=== PATIENT | male | born 1940 | race Caucasian/White ===

== ENCOUNTER 2023-03-14 16:00 | Inpatient (IN) | payer MEDICARE, SELFPAY ==
[2023-03-14 16:45] VITALS: BMI 26.5
[2023-03-14 16:46] VITALS: BP 132/79; PULSE 84; RESP 16; TEMP 36.4; O2SAT 93
[2023-03-14 18:00] VITALS: BP 108/56; PULSE 87; RESP 16; TEMP 36; O2SAT 95
--- NOTE | 2023-03-14 18:33 | HO.PM.IMCN ---
History of Present Illness Data of Consult Service Date: 03/14/23 Primary Care Provider: Unknown Physician HPI Reason for consult: Admission H&P Pt is an 82-year-old male with a PMH significant for?HTN, HLD, GERD, hx of subdural hematoma, cognitive decline, and depression who is admitted to [facility] for increasing depression with SI with plan to stop taking home meds. Patient apparently recently discontinued his home medications in conjunction with his with the intention of committing suicide. Medical consult for admission H&P. ?Pt is alert and oriented to person and year, but not to place or situation. He is incapable of providing a full and accurate HPI. When asked, pt denies any acute medical complaints and states he feels good. Review of Systems Review of Systems: Unable to obtain d/t pt's mentation [facility] Social History Household Members: Spouse Housing: Apartment Do you presently have visiting nurse or other home services: Yes Patient Tobacco Use Status: Former Tobacco user Quit Date: 2017 Tobacco use type: Cigarette Smoked in Last 30 Days: No Patient Interested in Nicotine Replacement: No Second Hand Smoke Exposure: No Use of substances other than those prescribed or required for medical reasons: No Currently Displaying Signs/Symptoms of Drug Intoxication Withdrawal: No Any prior treatment program specific to substance use: No Have you been hit, kicked, punched, or otherwise hurt by someone within the past year? If so, by whom?: No Do you feel safe in your current relationship?: Yes Are you made to feel afraid or neglected: No Advance Directives: No Advance Directives Information Provided: No Do you have thoughts of harming others: None Do you have a plan to hurt others: No Plan Recently lost weight without trying: No Nutrition Risks: No Nutritional Risk Poor oral hygiene: No Meds Allergies Allergy/AdvReac Type Severity Reaction Status Date / Time Latex, Natural Rubber AdvReac Rash Verified 03/14/23 16:44 Active Medications: Current Medications Acetaminophen (Acetaminophen 325 Mg Tablet) 650 mg PO Q6H PRN PRN Reason: Headache/Pain Mild Scale (1-3) Acetaminophen (Acetaminophen 325 Mg Tablet) 1,000 mg PO BEDTIME PRN PRN Reason: Moderate Pain (Scale Score 5-6) Al Hydroxide/Mg Hydroxide (Magnesium Hydrox/Alum Hydrox 30 Ml Oral.Susp) 30 ml PO Q6H PRN PRN Reason: Heartburn/Nausea Atorvastatin Calcium (Atorvastatin Calcium 40 Mg Tablet) 40 mg PO 1XD RICK Hydroxyzine HCl (Hydroxyzine Hcl 25 Mg Tablet) 25 mg PO Q6H PRN PRN Reason: Anxiety Lisinopril (Lisinopril 5 Mg Tablet) 5 mg PO DAILY RICK; Protocol Magnesium Hydroxide (Milk Of Magnesia 30 Ml Oral.Susp) 30 ml PO DAILY PRN PRN Reason: Constipation Non-Formulary Medication (Bupropion Hcl) 100 mg PO BID RICK Non-Formulary Medication (Lansoprazole) 15 mg PO DAILY RICK Sertraline HCl (Sertraline Hcl 50 Mg Tablet) 250 mg PO DAILY RICK Trazodone HCl (Trazodone Hcl 50 Mg Tablet) 50 mg PO BEDTIME MRX1 PRN PRN Reason: Insomnia Home Medications Medication Instructions Recorded Confirmed Last Taken Type acetaminophen 325 mg capsule 1,000 mg PO BEDTIME PRN Moderate 03/14/23 03/14/23 03/13/23 21:00 History (Tylenol) Pain (Scale Score 5-6) atorvastatin 40 mg tablet 40 mg PO 1XD 03/14/23 03/14/23 03/13/23 21:00 History bupropion HCl 100 mg tablet,12 hr 100 mg PO BID 03/14/23 03/14/23 03/14/23 08:45 History sustained-release lansoprazole 15 mg capsule,delayed 15 mg PO DAILY 03/14/23 03/14/23 03/14/23 08:45 History release lisinopril 5 mg tablet 5 mg PO DAILY 03/14/23 03/14/23 03/14/23 08:45 History sertraline 50 mg tablet 250 mg PO DAILY 03/14/23 03/14/23 03/14/23 08:45 History vibegron 75 mg tablet 75 mg PO DAILY 03/14/23 03/14/23 Unknown History Physical Exam Vital Signs and Narrative: Vital Signs: Last Vital Signs Temp 97.6 F 03/14/23 16:46 Pulse 84 03/14/23 16:46 Resp 16 03/14/23 16:46 BP 132/79 03/14/23 16:46 Pulse Ox 93 03/14/23 16:46 O2 Del Method Room Air 03/14/23 16:46 BMI result Body Mass Index 26.5 General: AOx2, pleasantly confused, in no acute distress Resp: CTA bilaterally CVS: S1, S2, RRR GI: +BS, NT, no distention Skin: No rash Neuro: Cranial nerves II-XII grossly intact bilaterally. Motor grossly intact bilaterally Extremities: No edema Psych: Cooperative, pleasantly confused Assessment and Plan (1) Medical clearance for psychiatric admission: Status: Acute Plan Pt is an 82-year-old male with a PMH significant for?HTN, HLD, GERD, hx of subdural hematoma, cognitive decline, and depression who is admitted to [facility] for increasing depression with SI with plan to stop taking home meds. Patient apparently recently discontinued his home medications in conjunction with his with the intention of committing suicide. Medical consult for admission H&P. Mood disorder Plan as per psychiatry HTN Continue lisinopril HLD Continue statin GERD Continue PPI Overactive bladder Continue vibegron Thank you for allowing us to participate in the care of this patient. Signing off at this time. Please let us know if there are any acute complaints or questions. Time Spent With Patient Time: Total time managing care of this patient today ____ minutes.
--- NOTE | 2023-03-14 19:10 | PC.ADMIT ---
Patient 82 y.o. male arrived via stretcher from [facility] at 16:17. Alert, oriented to person, he knows he is in hospital d/t uncertain of his brain , didn't remember which hospital, confused. VS: 97.6, P 84, 132/79, O2sat 93% on RA. Pt denies pain. Hygiene care provided. Some reddened to hernan area noted. BM after supper. Pt ambulates with assist, gait unsteady. Adm Dx of Major depressive disorder, SI. Pt said he and his were thinking about ending their life by using gas masks and laughing gas. Then he said he didn't see his for six months and doesn't know where she is. Pt requested Flu vaccination.
[2023-03-14] MEDS: Atorvastatin Calcium 40 MG TABLET PO (21:26)
[2023-03-14] MEDS: hydrOXYzine HCL 25 MG TABLET PO (21:26)
[2023-03-14] MEDS: traZODone HCL 50 MG TABLET PO (21:27)
[2023-03-15 08:33] LABS: Alanine Aminotransferase 28 U/L (0-40); Albumin Level 3.9 g/dL (3.5-5.0); Alkaline Phosphatase 57 U/L (39-117); Anion Gap 14 (12-20); Aspartate Amino Transferase 24 U/L (5-37); Bilirubin Total 0.5 mg/dL (0.0-1.0); Blood Urea Nitrogen 19 mg/dL (9-16); Calcium 10.4 mg/dL (8.4-10.2); Carbon Dioxide 25 mmol/L (22-29); Chloride 109 mmol/L (96-108); Cholesterol 101 mg/dL (<200); Creatinine Clr Calc Pharmacy 65.9; Estimated Glomerular Filt Rate > 60; Glucose Fasting 95 mg/dL (60-99); HDL Cholesterol 36 mg/dL (>40); LDL Cholesterol Calculated 44 mg/dL (<100); Potassium 4.1 mmol/L (3.3-5.1); Sodium 144 mmol/L (135-145); Total Protein 6.7 g/dL (6.5-8.0); Triglycerides 105 mg/dL (<150)
[2023-03-15 09:13] VITALS: BP 130/74; PULSE 85; RESP 17; TEMP 36.5; O2SAT 93
[2023-03-15] MEDS: Omeprazole 20 MG CAPSULE.DR PO (09:15)
[2023-03-15] MEDS: Sertraline HCL 50 MG TABLET 250 MG PO (09:15)
[2023-03-15] MEDS: lisinopriL 5 MG TABLET PO (09:16)
[2023-03-15] MEDS: buPROPion HCl XL 150 MG TAB.ER.24H PO (09:16)
--- NOTE | 2023-03-15 12:13 | HO.PSYADMNOT ---
HPI Date of Service: 03/15/23 Chief Complaint: psychosis Sources of Information: patient interviewed, chart reviewed and crisis/core team assessment reviewed HPI Subjective Notes: Conditional Voluntary Narrative: The patient is an 82-year-old male, , with no biological children, retired, living with his with no prior psychiatric history. According to the crisis assessment, the patient used to live with his who was admitted into geriatric psychiatric unit. He was a very poor historian but apparently he stopped his medications in a suicidal attempt. Also, his cognition has worsened and he was unable to take care by himself. He was rushed to the emergency room of [facility], admitted and referred to this facility for psychiatric stabilization. Apparently, the patient had been a very poor historian unable to provide any more details but he was able to admit depressive symptoms elicited by depressed mood, anhedonia, lack of energy and suicidal thoughts. On admission, the patient looked tired and confused. He stated that he was assessed before and he had a cognitive problem, he stated that he was feeling depressed with depressed mood, anhedonia, lack of energy, feelings of hopelessness and passive suicidal thoughts. He was unable to remember that he was suicidal certain point. He adamantly denies hallucinations delusions or paranoia. He denies prior history of mood lability or psychosis. The patient was already started on Wellbutrin but he was unable to provide a list of medications. We decided to gather collateral information since the patient is a very poor historian at this moment the patient states that he feels safe in the unit he is willing to continue treatment. Past Psychiatric History: The patient denies prior psychiatric history but apparently he was diagnosed of dementia before. Medical Evaluation Reviewed: Yes [facility] Family History: Denies Social History: , with no biological children, lives with his until she was admitted into a psychiatric unit. Retired unknown social support Substance History: Denies Trauma History: Denies Diagnostics Vital Signs (24Hr): Vital Signs - 24 hr 03/14/23 16:46 03/14/23 18:00 03/15/23 09:13 Temperature 97.6 F 96.8 F 97.7 F Pulse Rate 84 87 85 Respiratory Rate 16 16 17 Blood Pressure 132/79 108/56 L 130/74 Pulse Oximetry 93 95 93 Oxygen Delivery Method Room Air Room Air Room Air BMI result Body Mass Index 26.5 Labs 03/15/23 07:56 Labs: Laboratory Results - last 48 hr 03/15/23 07:56 Sodium 144 Potassium 4.1 Chloride 109 H Carbon Dioxide 25 Anion Gap 14 BUN 19 H Creatinine 0.98 Estim Creat Clear Calc 65.9 Estimated GFR > 60 Fasting Glucose 95 Calcium 10.4 H Total Bilirubin 0.5 AST 24 ALT 28 Alkaline Phosphatase 57 Total Protein 6.7 Albumin 3.9 Triglycerides 105 Cholesterol 101 LDL Cholesterol, Calc 44 HDL Cholesterol 36 L Meds/Allergies Meds Home Medications Medication Instructions Recorded Confirmed Type acetaminophen 325 mg capsule 1,000 mg PO BEDTIME PRN Moderate 03/14/23 03/14/23 History (Tylenol) Pain (Scale Score 5-6) atorvastatin 40 mg tablet 40 mg PO 1XD 03/14/23 03/14/23 History bupropion HCl 100 mg tablet,12 hr 100 mg PO BID 03/14/23 03/14/23 History sustained-release lansoprazole 15 mg capsule,delayed 15 mg PO DAILY 03/14/23 03/14/23 History release lisinopril 5 mg tablet 5 mg PO DAILY 03/14/23 03/14/23 History sertraline 50 mg tablet 250 mg PO DAILY 03/14/23 03/14/23 History vibegron 75 mg tablet 75 mg PO DAILY 03/14/23 03/14/23 History Allergies Allergies Allergy/AdvReac Type Severity Reaction Status Date / Time Latex, Natural Rubber AdvReac Rash Verified 03/14/23 16:44 Mental Status Exam Mental Status Exam Patient Appearance: Disheveled and Unkempt Patient Orientation: Person Level of Consciousness: Awake Patient Behavior: Guarded and Passive Mood Description: Withdrawn and Constricted Affect Description: Blunted Patient Cognition Impaired: Yes Ability to Follow Directions: Fair Speech Pattern: Clear Hallucinations: None Delusions: Not Present Thought Process: Distracted and Slowed Thinking Thought Content: positive for [place] and positive for Poverty of Content Judgement: Poor Assessment & Plan Assessment & Plan (1) Major depressive disorder: Status: Acute Code(s): F32.9 - Major depressive disorder, single episode, unspecified (2) Neurodegenerative cognitive impairment: Status: Acute Code(s): G31.9 - Degenerative disease of nervous system, unspecified Plan The patient is an elderly male with no prior psychiatric history, admitted for suicidal thoughts and depression since his was admitted into a psychiatric unit. On interview, on admission, he was very confused and a very poor historian. According to crisis, the patient had a prior history of depression and started reading Wellbutrin. Plan 1. Gather collateral information the prep H and is a very poor historian and he is willing to start treatment. 2. Continue with Wellbutrin as prescribed. 3. Continue with medical workout. 4. Reassessment results. Patient educated on: diagnosis and therapeutic strategies Reason for continued inpatient stay Substantial Risk for: inability to function, rapid decompensation and med/psych decompensation Statement Statement: I have reviewed the history and physical and performed a pertinent examination on my patient. No changes have occurred unless specified. If the History and Physical was not performed prior to admission, the Hospitalist's service will be consulted for completing the admission physical. Time Spent With Patient Time: Total time managing care of this patient today _45___ minutes.
[2023-03-15 18:00] VITALS: BP 142/62; PULSE 73; RESP 18; TEMP 35.9; O2SAT 95
[2023-03-15] MEDS: Atorvastatin Calcium 40 MG TABLET PO (21:13)
[2023-03-16 08:15] VITALS: BP 113/73; PULSE 86; RESP 18; TEMP 36.3; O2SAT 95
[2023-03-16] MEDS: buPROPion HCl XL 150 MG TAB.ER.24H PO (08:52)
[2023-03-16] MEDS: lisinopriL 5 MG TABLET PO (08:52)
[2023-03-16] MEDS: Omeprazole 20 MG CAPSULE.DR PO (09:01)
[2023-03-16] MEDS: Sertraline HCL 50 MG TABLET 250 MG PO (09:01)
--- NOTE | 2023-03-16 17:58 | HO.PSYCHPN ---
Subjective Subjective Date of Service: 03/16/23 Reason For Visit: psychosis Interim History: Met with patient; discussed with team; reviewed notes Patient lying in bed and says I am doing just fine. Hammer Fitter inquired further about his mood but patient replied I just can not answer that question... Denies any SI. Mental Status Exam Mental Status Exam Patient Appearance: Unkempt Patient Orientation: Person Level of Consciousness: Awake Patient Behavior: Guarded and Passive Mood Description: Withdrawn and Constricted Affect Description: Blunted Patient Cognition Impaired: Yes Ability to Follow Directions: Fair Speech Pattern: Clear Hallucinations: None Delusions: Not Present Thought Process: Distracted and Slowed Thinking Thought Content: positive for [place] and positive for Poverty of Content Abnormal Motor Activity Signs and Symptoms: Psychomotor Retardation Judgement: Poor Diagnostics Vital Signs (24Hr): Vital Signs - 24 hr 03/15/23 18:00 03/16/23 08:15 Temperature 96.7 F L 97.4 F Pulse Rate 73 86 Respiratory Rate 18 18 Blood Pressure 142/62 H 113/73 Pulse Oximetry 95 95 Oxygen Delivery Method Room Air Room Air BMI result Body Mass Index 26.5 Labs 03/15/23 07:56 Labs: Laboratory Results - last 48 hr 03/15/23 07:56 Sodium 144 Potassium 4.1 Chloride 109 H Carbon Dioxide 25 Anion Gap 14 BUN 19 H Creatinine 0.98 Estim Creat Clear Calc 65.9 Estimated GFR > 60 Fasting Glucose 95 Calcium 10.4 H Total Bilirubin 0.5 AST 24 ALT 28 Alkaline Phosphatase 57 Total Protein 6.7 Albumin 3.9 Triglycerides 105 Cholesterol 101 LDL Cholesterol, Calc 44 HDL Cholesterol 36 L Medications Medications Current Medications Acetaminophen (Acetaminophen 325 Mg Tablet) 650 mg PO Q6H PRN PRN Reason: Headache/Pain Mild Scale (1-3) Acetaminophen (Acetaminophen 325 Mg Tablet) 975 mg PO BEDTIME PRN PRN Reason: Moderate Pain (Scale Score 5-6) Al Hydroxide/Mg Hydroxide (Magnesium Hydrox/Alum Hydrox 30 Ml Oral.Susp) 30 ml PO Q6H PRN PRN Reason: Heartburn/Nausea Atorvastatin Calcium (Atorvastatin Calcium 40 Mg Tablet) 40 mg PO BEDTIME [facility] Last Admin: 03/15/23 21:13 Dose: 40 mg Bupropion HCl (Bupropion Hcl Xl 150 Mg Tab.Er.24h) 150 mg PO DAILY [facility] Last Admin: 03/16/23 08:52 Dose: 150 mg Hydroxyzine HCl (Hydroxyzine Hcl 25 Mg Tablet) 25 mg PO Q6H PRN PRN Reason: Anxiety Last Admin: 03/14/23 21:26 Dose: 25 mg Lisinopril (Lisinopril 5 Mg Tablet) 5 mg PO DAILY [facility]; Protocol Last Admin: 03/16/23 08:52 Dose: 5 mg Magnesium Hydroxide (Milk Of Magnesia 30 Ml Oral.Susp) 30 ml PO DAILY PRN PRN Reason: Constipation Omeprazole (Omeprazole 20 Mg Capsule.Dr) 20 mg PO DAILY [facility] Last Admin: 03/16/23 09:01 Dose: 20 mg Sertraline HCl (Sertraline Hcl 50 Mg Tablet) 250 mg PO DAILY [facility] Last Admin: 03/16/23 09:01 Dose: 250 mg Trazodone HCl (Trazodone Hcl 50 Mg Tablet) 50 mg PO BEDTIME MRX1 PRN PRN Reason: Insomnia Last Admin: 03/14/23 21:27 Dose: 50 mg Allergies Allergies Allergy/AdvReac Type Severity Reaction Status Date / Time Latex, Natural Rubber AdvReac Rash Verified 03/14/23 16:44 Assessment & Plan Assessment & Plan (1) Major depressive disorder: Status: Acute Code(s): F32.9 - Major depressive disorder, single episode, unspecified (2) Neurodegenerative cognitive impairment: Status: Acute Code(s): G31.9 - Degenerative disease of nervous system, unspecified Plan The patient is an elderly male with no prior psychiatric history, admitted for suicidal thoughts and depression since his was admitted into a psychiatric unit. On interview, on admission, he was very confused and a very poor historian. According to crisis, the patient had a prior history of depression and started reading Wellbutrin. 03/16 continue current treatment plan Plan 1. Gather collateral information the prep H and is a very poor historian and he is willing to start treatment. 2. Continue with Wellbutrin as prescribed. 3. Continue with medical workout. 4. Reassessment results. Patient educated on: diagnosis Informed Consent: understands and further education needed Reason for continued inpatient stay Substantial Risk for: inability to function Time Spent With Patient Time: Total time managing care of this patient today ____ minutes.
[2023-03-16 18:00] VITALS: BP 107/57; PULSE 88; RESP 17; TEMP 37.6; O2SAT 93
[2023-03-16] MEDS: traZODone HCL 50 MG TABLET PO (21:10)
[2023-03-16] MEDS: Atorvastatin Calcium 40 MG TABLET PO (21:10)
[2023-03-17] MEDS: Acetaminophen 325 MG TABLET 650 MG PO (06:02)
[2023-03-17 08:10] VITALS: BP 144/83; PULSE 78; RESP 18; TEMP 36.1; O2SAT 95
[2023-03-17] MEDS: lisinopriL 5 MG TABLET PO (09:31)
[2023-03-17] MEDS: Sertraline HCL 50 MG TABLET 250 MG PO (09:31)
[2023-03-17] MEDS: buPROPion HCl XL 150 MG TAB.ER.24H PO (09:32)
[2023-03-17] MEDS: Omeprazole 20 MG CAPSULE.DR PO (10:59)
--- NOTE | 2023-03-17 17:29 | P.PNPSI_ITS ---
Subjective Subjective Date of Service: 03/17/23 Reason For Visit: psychosis Interim History: Met with patient; discussed with team Same presentation, lying in bed reading a book. Mechanical Engineering Technologist discussed behavioral activation as it is helpful for both depression and to prevent blood clots or bedsores. Patient says he understands and will push himself to walk the halls a few times a day. Mental Status Exam Mental Status Exam Patient Appearance: Unkempt Patient Orientation: Person Level of Consciousness: Awake Patient Behavior: Guarded and Passive Mood Description: Withdrawn and Constricted Affect Description: Blunted Patient Cognition Impaired: Yes Ability to Follow Directions: Fair Speech Pattern: Clear Hallucinations: None Delusions: Not Present Thought Process: Distracted and Slowed Thinking Thought Content: positive for [place] and positive for Poverty of Content Abnormal Motor Activity Signs and Symptoms: Psychomotor Retardation Judgement: Poor Diagnostics Vital Signs (24Hr): Vital Signs - 24 hr 03/16/23 18:00 03/17/23 08:10 Temperature 99.7 F 96.9 F Pulse Rate 88 78 Respiratory Rate 17 18 Blood Pressure 107/57 L 144/83 H Pulse Oximetry 93 95 Oxygen Delivery Method Room Air Room Air BMI result Body Mass Index 26.5 Labs 03/15/23 07:56 Medications Medications Current Medications Acetaminophen (Acetaminophen 325 Mg Tablet) 650 mg PO Q6H PRN PRN Reason: Headache/Pain Mild Scale (1-3) Last Admin: 03/17/23 06:02 Dose: 650 mg Acetaminophen (Acetaminophen 325 Mg Tablet) 975 mg PO BEDTIME PRN PRN Reason: Moderate Pain (Scale Score 5-6) Al Hydroxide/Mg Hydroxide (Magnesium Hydrox/Alum Hydrox 30 Ml Oral.Susp) 30 ml PO Q6H PRN PRN Reason: Heartburn/Nausea Atorvastatin Calcium (Atorvastatin Calcium 40 Mg Tablet) 40 mg PO BEDTIME RICK Last Admin: 03/16/23 21:10 Dose: 40 mg Bupropion HCl (Bupropion Hcl Xl 150 Mg Tab.Er.24h) 150 mg PO DAILY RICK Last Admin: 03/17/23 09:32 Dose: 150 mg Hydroxyzine HCl (Hydroxyzine Hcl 25 Mg Tablet) 25 mg PO Q6H PRN PRN Reason: Anxiety Last Admin: 03/14/23 21:26 Dose: 25 mg Lisinopril (Lisinopril 5 Mg Tablet) 5 mg PO DAILY RICK; Protocol Last Admin: 03/17/23 09:31 Dose: 5 mg Magnesium Hydroxide (Milk Of Magnesia 30 Ml Oral.Susp) 30 ml PO DAILY PRN PRN Reason: Constipation Omeprazole (Omeprazole 20 Mg Capsule.Dr) 20 mg PO DAILY RICK Last Admin: 03/17/23 10:59 Dose: 20 mg Sertraline HCl (Sertraline Hcl 50 Mg Tablet) 250 mg PO DAILY RICK Last Admin: 03/17/23 09:31 Dose: 250 mg Trazodone HCl (Trazodone Hcl 50 Mg Tablet) 50 mg PO BEDTIME MRX1 PRN PRN Reason: Insomnia Last Admin: 03/16/23 21:10 Dose: 50 mg Allergies Allergies Allergy/AdvReac Type Severity Reaction Status Date / Time Latex, Natural Rubber AdvReac Rash Verified 03/14/23 16:44 Assessment & Plan Assessment & Plan (1) Major depressive disorder: Status: Acute Code(s): F32.9 - Major depressive disorder, single episode, unspecified (2) Neurodegenerative cognitive impairment: Status: Acute Code(s): G31.9 - Degenerative disease of nervous system, unspecified Plan The patient is an elderly male with no prior psychiatric history, admitted for suicidal thoughts and depression since his was admitted into a psychiatric unit. On interview, on admission, he was very confused and a very poor historian. According to crisis, the patient had a prior history of depression and started reading Wellbutrin. 03/16 continue current treatment plan 03/17 continue current treatment plan Plan 1. Gather collateral information the prep H and is a very poor historian and he is willing to start treatment. 2. Continue with Wellbutrin as prescribed. 3. Continue with medical workout. 4. Reassessment results. Patient educated on: diagnosis and therapeutic strategies Informed Consent: understands and further education needed Reason for continued inpatient stay Substantial Risk for: inability to function Time Spent With Patient Time: Total time managing care of this patient today ____ minutes.
[2023-03-17 19:35] VITALS: BP 135/76; PULSE 83; RESP 18; TEMP 36.2; O2SAT 95
[2023-03-17] MEDS: Atorvastatin Calcium 40 MG TABLET PO (20:08)
[2023-03-18 06:00] VITALS: BP 125/82; PULSE 91; RESP 18; TEMP 35.9; O2SAT 95
[2023-03-18] MEDS: buPROPion HCl XL 150 MG TAB.ER.24H PO (08:23)
[2023-03-18] MEDS: Sertraline HCL 50 MG TABLET 250 MG PO (08:23)
[2023-03-18] MEDS: lisinopriL 5 MG TABLET PO (08:23)
[2023-03-18] MEDS: Omeprazole 20 MG CAPSULE.DR PO (08:24)
--- NOTE | 2023-03-18 11:53 | P.PNPSI_ITS ---
Subjective Subjective Date of Service: 03/18/23 Reason For Visit: psychosis Subjective Notes: Conditional Voluntary Interim History: the nursing staff reported the patient had been flat, cooperative and pleasant. Alert only oriented to self. He slept well all last night. On interview the patient remains confused, easily redirectable. We discussed the possibility of starting medications for dementia and he agreed on the plan. Mental Status Exam Mental Status Exam Patient Appearance: Appropriate Patient Orientation: Person and Situation Level of Consciousness: Awake and Appropriate Patient Behavior: Guarded and Passive Mood Description: Withdrawn Affect Description: Constricted Patient Cognition Impaired: Yes Ability to Follow Directions: Good Speech Pattern: Clear Hallucinations: None Delusions: Not Present Thought Process: Distracted and Slowed Thinking Thought Content: positive for [place], positive for [place] and positive for Poverty of Content Judgement: Fair Diagnostics Vital Signs (24Hr): Vital Signs - 24 hr 03/17/23 19:35 03/18/23 06:00 Temperature 97.2 F 96.6 F L Pulse Rate 83 91 Respiratory Rate 18 18 Blood Pressure 135/76 125/82 Pulse Oximetry 95 95 Oxygen Delivery Method Room Air BMI result Body Mass Index 26.5 Labs 03/15/23 07:56 Medications Medications Current Medications Acetaminophen (Acetaminophen 325 Mg Tablet) 650 mg PO Q6H PRN PRN Reason: Headache/Pain Mild Scale (1-3) Last Admin: 03/17/23 06:02 Dose: 650 mg Acetaminophen (Acetaminophen 325 Mg Tablet) 975 mg PO BEDTIME PRN PRN Reason: Moderate Pain (Scale Score 5-6) Al Hydroxide/Mg Hydroxide (Magnesium Hydrox/Alum Hydrox 30 Ml Oral.Susp) 30 ml PO Q6H PRN PRN Reason: Heartburn/Nausea Atorvastatin Calcium (Atorvastatin Calcium 40 Mg Tablet) 40 mg PO BEDTIME RICK Last Admin: 03/17/23 20:08 Dose: 40 mg Bupropion HCl (Bupropion Hcl Xl 150 Mg Tab.Er.24h) 150 mg PO DAILY RICK Last Admin: 03/18/23 08:23 Dose: 150 mg Hydroxyzine HCl (Hydroxyzine Hcl 25 Mg Tablet) 25 mg PO Q6H PRN PRN Reason: Anxiety Last Admin: 03/14/23 21:26 Dose: 25 mg Lisinopril (Lisinopril 5 Mg Tablet) 5 mg PO DAILY RICK; Protocol Last Admin: 03/18/23 08:23 Dose: 5 mg Magnesium Hydroxide (Milk Of Magnesia 30 Ml Oral.Susp) 30 ml PO DAILY PRN PRN Reason: Constipation Omeprazole (Omeprazole 20 Mg Capsule.Dr) 20 mg PO DAILY RICK Last Admin: 03/18/23 08:24 Dose: 20 mg Sertraline HCl (Sertraline Hcl 50 Mg Tablet) 250 mg PO DAILY RICK Last Admin: 03/18/23 08:23 Dose: 250 mg Trazodone HCl (Trazodone Hcl 50 Mg Tablet) 50 mg PO BEDTIME MRX1 PRN PRN Reason: Insomnia Last Admin: 03/16/23 21:10 Dose: 50 mg Allergies Allergies Allergy/AdvReac Type Severity Reaction Status Date / Time Latex, Natural Rubber AdvReac Rash Verified 03/14/23 16:44 Assessment & Plan Assessment & Plan (1) Major depressive disorder: Status: Acute Code(s): F32.9 - Major depressive disorder, single episode, unspecified (2) Neurodegenerative cognitive impairment: Status: Acute Code(s): G31.9 - Degenerative disease of nervous system, unspecified Plan The patient is an elderly male with no prior psychiatric history, admitted for suicidal thoughts and depression since his was admitted into a psychiatric unit. On interview, on admission, he was very confused and a very poor historian. According to crisis, the patient had a prior history of depression and started reading Wellbutrin. Plan 1. Gather collateral information the prep H and is a very poor historian and he is willing to start treatment. 2. Continue with Wellbutrin as prescribed. 3. Continue with medical workout. 4. Reassessment results. Reason for continued inpatient stay Substantial Risk for: inability to function, rapid decompensation and med/psych decompensation Time Spent With Patient Time: Total time managing care of this patient today _20___ minutes.
[2023-03-18 18:00] VITALS: BP 126/109; PULSE 100; RESP 18; TEMP 37; O2SAT 96
[2023-03-18] MEDS: Atorvastatin Calcium 40 MG TABLET PO (20:12)
[2023-03-18] MEDS: Donepezil HCl 5 MG TABLET PO (20:12)
[2023-03-19 06:00] VITALS: BP 132/80; PULSE 96; RESP 18; TEMP 36.7; O2SAT 96
[2023-03-19] MEDS: Sertraline HCL 50 MG TABLET 250 MG PO (09:13)
[2023-03-19] MEDS: buPROPion HCl XL 150 MG TAB.ER.24H PO (09:14)
[2023-03-19] MEDS: Omeprazole 20 MG CAPSULE.DR PO (09:14)
[2023-03-19] MEDS: lisinopriL 5 MG TABLET PO (09:15)
--- NOTE | 2023-03-19 15:45 | HO.PSYCHPN ---
Subjective Subjective Date of Service: 03/19/23 Reason For Visit: psychosis Subjective Notes: Conditional Voluntary Interim History: The nursing staff reported the patient is alert oriented to self, he had been pleasantly confused. Denies suicidal ideation. The occupational therapist reported that he has court and over 30 on the [place] and 4.2 in the Nnamdi test. The psychosocial rehabilitation counselor reported that he spoke with his brother who is the healthcare proxy and apparently there were going to have a family reunion tomorrow at 11:00 o'clock. On interview the patient remains pleasantly confused he agreed to start Aricept for dementia. Mental Status Exam Mental Status Exam Patient Appearance: Appropriate Patient Orientation: Person and Situation Level of Consciousness: Awake and Appropriate Patient Behavior: Guarded and Passive Mood Description: Calm Affect Description: Constricted Patient Cognition Impaired: Yes Ability to Follow Directions: Good Speech Pattern: Clear Hallucinations: None Delusions: Not Present Thought Process: Distracted and Slowed Thinking Thought Content: positive for [place] and positive for Circumstantial Judgement: Fair Diagnostics Vital Signs (24Hr): Vital Signs - 24 hr 03/18/23 18:00 03/19/23 06:00 Temperature 98.6 F 98.1 F Pulse Rate 100 96 Respiratory Rate 18 18 Blood Pressure 126/109 H 132/80 Pulse Oximetry 96 96 Oxygen Delivery Method Room Air Room Air BMI result Body Mass Index 26.5 Labs 03/15/23 07:56 Medications Medications Current Medications Acetaminophen (Acetaminophen 325 Mg Tablet) 650 mg PO Q6H PRN PRN Reason: Headache/Pain Mild Scale (1-3) Last Admin: 03/17/23 06:02 Dose: 650 mg Acetaminophen (Acetaminophen 325 Mg Tablet) 975 mg PO BEDTIME PRN PRN Reason: Moderate Pain (Scale Score 5-6) Al Hydroxide/Mg Hydroxide (Magnesium Hydrox/Alum Hydrox 30 Ml Oral.Susp) 30 ml PO Q6H PRN PRN Reason: Heartburn/Nausea Atorvastatin Calcium (Atorvastatin Calcium 40 Mg Tablet) 40 mg PO BEDTIME RICK Last Admin: 03/18/23 20:12 Dose: 40 mg Bupropion HCl (Bupropion Hcl Xl 150 Mg Tab.Er.24h) 150 mg PO DAILY RICK Last Admin: 03/19/23 09:14 Dose: 150 mg Donepezil HCl (Donepezil Hcl 5 Mg Tablet) 5 mg PO BEDTIME RICK Last Admin: 03/18/23 20:12 Dose: 5 mg Hydroxyzine HCl (Hydroxyzine Hcl 25 Mg Tablet) 25 mg PO Q6H PRN PRN Reason: Anxiety Last Admin: 03/14/23 21:26 Dose: 25 mg Lisinopril (Lisinopril 5 Mg Tablet) 5 mg PO DAILY [facility]; Protocol Last Admin: 03/19/23 09:15 Dose: 5 mg Magnesium Hydroxide (Milk Of Magnesia 30 Ml Oral.Susp) 30 ml PO DAILY PRN PRN Reason: Constipation Omeprazole (Omeprazole 20 Mg Capsule.Dr) 20 mg PO DAILY [facility] Last Admin: 03/19/23 09:14 Dose: 20 mg Sertraline HCl (Sertraline Hcl 50 Mg Tablet) 250 mg PO DAILY [facility] Last Admin: 03/19/23 09:13 Dose: 250 mg Trazodone HCl (Trazodone Hcl 50 Mg Tablet) 50 mg PO BEDTIME MRX1 PRN PRN Reason: Insomnia Last Admin: 03/16/23 21:10 Dose: 50 mg Allergies Allergies Allergy/AdvReac Type Severity Reaction Status Date / Time Latex, Natural Rubber AdvReac Rash Verified 03/14/23 16:44 Assessment & Plan Assessment & Plan (1) Major depressive disorder: Status: Acute Code(s): F32.9 - Major depressive disorder, single episode, unspecified (2) Neurodegenerative cognitive impairment: Status: Acute Code(s): G31.9 - Degenerative disease of nervous system, unspecified Plan The patient is an elderly male with no prior psychiatric history, admitted for suicidal thoughts and depression since his was admitted into a psychiatric unit. On interview, on admission, he was very confused and a very poor historian. According to crisis, the patient had a prior history of depression and started reading Wellbutrin. Plan 1. Gather collateral information the prep H and is a very poor historian and he is willing to start treatment. 2. Continue with Wellbutrin as prescribed. 3. Continue with medical workout. 4. Reassessment results. 5. Aricept 5 mg p.o. q.h.s. to target dementia Reason for continued inpatient stay Substantial Risk for: inability to function, rapid decompensation and med/psych decompensation Time Spent With Patient Time: Total time managing care of this patient today __20__ minutes.
[2023-03-19 18:00] VITALS: BP 114/56; PULSE 79; RESP 18; TEMP 36.2; O2SAT 94
[2023-03-19] MEDS: Atorvastatin Calcium 40 MG TABLET PO (21:24)
[2023-03-19] MEDS: Donepezil HCl 5 MG TABLET PO (21:24)
[2023-03-19] MEDS: traZODone HCL 50 MG TABLET PO (21:25)
[2023-03-20 08:15] VITALS: BP 137/80; PULSE 76; RESP 18; TEMP 36.4; O2SAT 93
[2023-03-20] MEDS: buPROPion HCl XL 150 MG TAB.ER.24H PO (08:59)
[2023-03-20] MEDS: Omeprazole 20 MG CAPSULE.DR PO (09:00)
[2023-03-20] MEDS: lisinopriL 5 MG TABLET PO (09:00)
[2023-03-20] MEDS: Sertraline HCL 50 MG TABLET 250 MG PO (09:00)
--- NOTE | 2023-03-20 12:25 | HO.PSYCHPN ---
Subjective Subjective Date of Service: 03/20/23 Reason For Visit: psychosis Subjective Notes: Conditional Voluntary Interim History: The nursing staff reported the patient had been disoriented on time, cooperative and pleasant cheerful. The occupational therapist did a [place] test and he scored 10/30 and on Nnamdi test his core 4.2. The social worker school arranged today a phone call with his healthcare proxy, his brother, who is out of the state. We explained him his diagnosis and treatment options and it is clear that the patient will need a long-term placement with his who also is cognitively impaired. On interview the patient denies new symptoms, no side effects with the initial dose of Aricept. We are going to increase up to 10 mg tonight. Mental Status Exam Mental Status Exam Patient Appearance: Well Grooomed and Appropriate Patient Orientation: Person and Situation Level of Consciousness: Awake and Appropriate Patient Behavior: Cooperative and Passive Mood Description: Withdrawn Affect Description: Constricted Patient Cognition Impaired: Yes Ability to Follow Directions: Good Speech Pattern: Clear Hallucinations: None Delusions: Not Present Thought Process: Distracted, Evasive and Slowed Thinking Thought Content: positive for [place] and positive for Poverty of Content Judgement: Poor Diagnostics Vital Signs (24Hr): Vital Signs - 24 hr 03/19/23 18:00 03/20/23 08:15 Temperature 97.1 F 97.6 F Pulse Rate 79 76 Respiratory Rate 18 18 Blood Pressure 114/56 L 137/80 Pulse Oximetry 94 93 Oxygen Delivery Method Room Air Room Air BMI result Body Mass Index 26.5 Labs 03/15/23 07:56 Medications Medications Current Medications Acetaminophen (Acetaminophen 325 Mg Tablet) 650 mg PO Q6H PRN PRN Reason: Headache/Pain Mild Scale (1-3) Last Admin: 03/17/23 06:02 Dose: 650 mg Acetaminophen (Acetaminophen 325 Mg Tablet) 975 mg PO BEDTIME PRN PRN Reason: Moderate Pain (Scale Score 5-6) Al Hydroxide/Mg Hydroxide (Magnesium Hydrox/Alum Hydrox 30 Ml Oral.Susp) 30 ml PO Q6H PRN PRN Reason: Heartburn/Nausea Atorvastatin Calcium (Atorvastatin Calcium 40 Mg Tablet) 40 mg PO BEDTIME [facility] Last Admin: 03/19/23 21:24 Dose: 40 mg Bupropion HCl (Bupropion Hcl Xl 150 Mg Tab.Er.24h) 150 mg PO DAILY [facility] Last Admin: 03/20/23 08:59 Dose: 150 mg Donepezil HCl (Donepezil Hcl 5 Mg Tablet) 5 mg PO BEDTIME RICK Last Admin: 03/19/23 21:24 Dose: 5 mg Hydroxyzine HCl (Hydroxyzine Hcl 25 Mg Tablet) 25 mg PO Q6H PRN PRN Reason: Anxiety Last Admin: 03/14/23 21:26 Dose: 25 mg Lisinopril (Lisinopril 5 Mg Tablet) 5 mg PO DAILY [facility]; Protocol Last Admin: 03/20/23 09:00 Dose: 5 mg Magnesium Hydroxide (Milk Of Magnesia 30 Ml Oral.Susp) 30 ml PO DAILY PRN PRN Reason: Constipation Omeprazole (Omeprazole 20 Mg Capsule.Dr) 20 mg PO DAILY [facility] Last Admin: 03/20/23 09:00 Dose: 20 mg Sertraline HCl (Sertraline Hcl 50 Mg Tablet) 250 mg PO DAILY [facility] Last Admin: 03/20/23 09:00 Dose: 250 mg Trazodone HCl (Trazodone Hcl 50 Mg Tablet) 50 mg PO BEDTIME MRX1 PRN PRN Reason: Insomnia Last Admin: 03/19/23 21:25 Dose: 50 mg Allergies Allergies Allergy/AdvReac Type Severity Reaction Status Date / Time Latex, Natural Rubber AdvReac Rash Verified 03/14/23 16:44 Assessment & Plan Assessment & Plan (1) Major depressive disorder: Status: Acute Code(s): F32.9 - Major depressive disorder, single episode, unspecified (2) Neurodegenerative cognitive impairment: Status: Acute Code(s): G31.9 - Degenerative disease of nervous system, unspecified Plan The patient is an elderly male with no prior psychiatric history, admitted for suicidal thoughts and depression since his was admitted into a psychiatric unit. On interview, on admission, he was very confused and a very poor historian. According to crisis, the patient had a prior history of depression and started reading Wellbutrin. Plan 1. Gather collateral information the prep H and is a very poor historian and he is willing to start treatment. 2. Continue with Wellbutrin as prescribed. 3. Continue with medical workout. 4. Reassessment results. 5. Aricept 5 mg p.o. q.h.s. to target dementia, started on March 18. We are increasing up to 10 mg p.o. q.h.s. on March 20. Reason for continued inpatient stay Substantial Risk for: inability to function, rapid decompensation and med/psych decompensation Time Spent With Patient Time: Total time managing care of this patient today _20___ minutes.
[2023-03-20 18:00] VITALS: BP 123/73; PULSE 87; RESP 18; TEMP 36.1; O2SAT 97
[2023-03-20] MEDS: traZODone HCL 50 MG TABLET PO (20:42)
[2023-03-20] MEDS: Donepezil HCl 10 MG TABLET PO (20:42)
[2023-03-20] MEDS: Atorvastatin Calcium 40 MG TABLET PO (20:42)
[2023-03-21 07:00] VITALS: BMI 26.0
[2023-03-21 08:45] VITALS: BP 154/77; PULSE 66; RESP 18; TEMP 36.3; O2SAT 98
[2023-03-21] MEDS: Sertraline HCL 50 MG TABLET 250 MG PO (09:20)
[2023-03-21] MEDS: Omeprazole 20 MG CAPSULE.DR PO (09:21)
[2023-03-21] MEDS: buPROPion HCl XL 150 MG TAB.ER.24H PO (09:21)
[2023-03-21] MEDS: lisinopriL 5 MG TABLET PO (09:21)
--- NOTE | 2023-03-21 13:36 | HO.PSYCHPN ---
Subjective Subjective Date of Service: 03/21/23 Reason For Visit: psychosis Subjective Notes: Conditional Voluntary Interim History: The nursing staff reported the patient had been come quiet and confused, compliant with treatment. He stated that he feels safe in the unit. He slept poorly needed trazodone p.r.n.. On interview we discussed the need to add Namenda on top of Aricept since his dementia is pretty advanced. The child welfare social worker reported that we are going to start applying for [facility] where his is residing. Mental Status Exam Mental Status Exam Patient Appearance: Well Grooomed and Appropriate Patient Orientation: Person and Situation Level of Consciousness: Awake and Appropriate Patient Behavior: Guarded and Passive Mood Description: Withdrawn Affect Description: Constricted Patient Cognition Impaired: Yes Ability to Follow Directions: Good Speech Pattern: Clear Hallucinations: None Delusions: Not Present Thought Process: Distracted, Evasive and Slowed Thinking Thought Content: positive for [place] and positive for Circumstantial Judgement: Fair Diagnostics Vital Signs (24Hr): Vital Signs - 24 hr 03/20/23 18:00 03/21/23 08:45 Temperature 96.9 F 97.3 F Pulse Rate 87 66 Respiratory Rate 18 18 Blood Pressure 123/73 154/77 H Pulse Oximetry 97 98 Oxygen Delivery Method Room Air Room Air BMI result Body Mass Index 26.5 Labs 03/15/23 07:56 Medications Medications Current Medications Acetaminophen (Acetaminophen 325 Mg Tablet) 650 mg PO Q6H PRN PRN Reason: Headache/Pain Mild Scale (1-3) Last Admin: 03/17/23 06:02 Dose: 650 mg Acetaminophen (Acetaminophen 325 Mg Tablet) 975 mg PO BEDTIME PRN PRN Reason: Moderate Pain (Scale Score 5-6) Al Hydroxide/Mg Hydroxide (Magnesium Hydrox/Alum Hydrox 30 Ml Oral.Susp) 30 ml PO Q6H PRN PRN Reason: Heartburn/Nausea Atorvastatin Calcium (Atorvastatin Calcium 40 Mg Tablet) 40 mg PO BEDTIME [facility] Last Admin: 03/20/23 20:42 Dose: 40 mg Bupropion HCl (Bupropion Hcl Xl 150 Mg Tab.Er.24h) 150 mg PO DAILY [facility] Last Admin: 03/21/23 09:21 Dose: 150 mg Donepezil HCl (Donepezil Hcl 10 Mg Tablet) 10 mg PO BEDTIME RICK Last Admin: 03/20/23 20:42 Dose: 10 mg Hydroxyzine HCl (Hydroxyzine Hcl 25 Mg Tablet) 25 mg PO Q6H PRN PRN Reason: Anxiety Last Admin: 03/14/23 21:26 Dose: 25 mg Lisinopril (Lisinopril 5 Mg Tablet) 5 mg PO DAILY [facility]; Protocol Last Admin: 03/21/23 09:21 Dose: 5 mg Magnesium Hydroxide (Milk Of Magnesia 30 Ml Oral.Susp) 30 ml PO DAILY PRN PRN Reason: Constipation Memantine (Memantine Hcl 5 Mg Tablet) 5 mg PO DAILY [facility] Omeprazole (Omeprazole 20 Mg Capsule.Dr) 20 mg PO DAILY [facility] Last Admin: 03/21/23 09:21 Dose: 20 mg Sertraline HCl (Sertraline Hcl 50 Mg Tablet) 250 mg PO DAILY [facility] Last Admin: 03/21/23 09:20 Dose: 250 mg Trazodone HCl (Trazodone Hcl 50 Mg Tablet) 50 mg PO BEDTIME MRX1 PRN PRN Reason: Insomnia Last Admin: 03/20/23 20:42 Dose: 50 mg Allergies Allergies Allergy/AdvReac Type Severity Reaction Status Date / Time Latex, Natural Rubber AdvReac Rash Verified 03/14/23 16:44 Assessment & Plan Assessment & Plan (1) Major depressive disorder: Status: Acute Code(s): F32.9 - Major depressive disorder, single episode, unspecified (2) Neurodegenerative cognitive impairment: Status: Acute Code(s): G31.9 - Degenerative disease of nervous system, unspecified Plan The patient is an elderly male with no prior psychiatric history, admitted for suicidal thoughts and depression since his was admitted into a psychiatric unit. On interview, on admission, he was very confused and a very poor historian. According to crisis, the patient had a prior history of depression and started reading Wellbutrin. Plan 1. Gather collateral information the prep H and is a very poor historian and he is willing to start treatment. 2. Continue with Wellbutrin as prescribed. 3. Continue with medical workout. 4. Reassessment results. 5. Aricept 5 mg p.o. q.h.s. to target dementia, started on March 18. We are increasing up to 10 mg p.o. q.h.s. on March 20. 6. Start Namenda 5 mg p.o. daily on March 21. Reason for continued inpatient stay Substantial Risk for: inability to function, rapid decompensation and med/psych decompensation Time Spent With Patient Time: Total time managing care of this patient today __20__ minutes.
[2023-03-21 19:35] VITALS: BP 118/62; PULSE 77; RESP 18; TEMP 36.7; O2SAT 96
[2023-03-21] MEDS: Donepezil HCl 10 MG TABLET PO (20:30)
[2023-03-21] MEDS: Atorvastatin Calcium 40 MG TABLET PO (20:30)
[2023-03-22 08:00] VITALS: PULSE 71; RESP 16; TEMP 36.3; O2SAT 96
[2023-03-22] MEDS: buPROPion HCl XL 150 MG TAB.ER.24H PO (08:31)
[2023-03-22] MEDS: Omeprazole 20 MG CAPSULE.DR PO (08:31)
[2023-03-22] MEDS: Sertraline HCL 50 MG TABLET 250 MG PO (08:31)
[2023-03-22] MEDS: Memantine HCl 5 MG TABLET PO (08:31)
[2023-03-22] MEDS: lisinopriL 5 MG TABLET PO (08:31)
--- NOTE | 2023-03-22 14:13 | P.PNPSI_ITS ---
Subjective Subjective Date of Service: 03/22/23 Reason For Visit: psychosis Subjective Notes: Conditional Voluntary Interim History: The nursing staff reported the patient had been confused, visible in the unit confused. The occupational therapist reported that he went to groups he had delayed responses and very limited cognition. The high school social studies tutor reported that we are applying for rest home. Interview the patient denies new symptoms no side effects with the new medications such as Aricept and Namenda. Mental Status Exam Mental Status Exam Patient Appearance: Appropriate Patient Orientation: Person Level of Consciousness: Awake and Appropriate Patient Behavior: Appropriate and Passive Mood Description: Calm Affect Description: Constricted Patient Cognition Impaired: Yes Ability to Follow Directions: Good Speech Pattern: Clear Hallucinations: None Delusions: Not Present Thought Process: Distracted and Linear Thought Content: positive for [place] and positive for Poverty of Content Judgement: Poor Diagnostics Vital Signs (24Hr): Vital Signs - 24 hr 03/21/23 19:35 03/22/23 08:00 Temperature 98.1 F 97.3 F Pulse Rate 77 71 Respiratory Rate 18 16 Blood Pressure 118/62 Pulse Oximetry 96 96 Oxygen Delivery Method Room Air Room Air BMI result Body Mass Index 26.0 Labs 03/15/23 07:56 Medications Medications Current Medications Acetaminophen (Acetaminophen 325 Mg Tablet) 650 mg PO Q6H PRN PRN Reason: Headache/Pain Mild Scale (1-3) Last Admin: 03/17/23 06:02 Dose: 650 mg Acetaminophen (Acetaminophen 325 Mg Tablet) 975 mg PO BEDTIME PRN PRN Reason: Moderate Pain (Scale Score 5-6) Al Hydroxide/Mg Hydroxide (Magnesium Hydrox/Alum Hydrox 30 Ml Oral.Susp) 30 ml PO Q6H PRN PRN Reason: Heartburn/Nausea Atorvastatin Calcium (Atorvastatin Calcium 40 Mg Tablet) 40 mg PO BEDTIME RICK Last Admin: 03/21/23 20:30 Dose: 40 mg Bupropion HCl (Bupropion Hcl Xl 150 Mg Tab.Er.24h) 150 mg PO DAILY [facility] Last Admin: 03/22/23 08:31 Dose: 150 mg Donepezil HCl (Donepezil Hcl 10 Mg Tablet) 10 mg PO BEDTIME RICK Last Admin: 03/21/23 20:30 Dose: 10 mg Hydroxyzine HCl (Hydroxyzine Hcl 25 Mg Tablet) 25 mg PO Q6H PRN PRN Reason: Anxiety Last Admin: 03/14/23 21:26 Dose: 25 mg Lisinopril (Lisinopril 5 Mg Tablet) 5 mg PO DAILY [facility]; Protocol Last Admin: 03/22/23 08:31 Dose: 5 mg Magnesium Hydroxide (Milk Of Magnesia 30 Ml Oral.Susp) 30 ml PO DAILY PRN PRN Reason: Constipation Memantine (Memantine Hcl 5 Mg Tablet) 5 mg PO DAILY [facility] Last Admin: 03/22/23 08:31 Dose: 5 mg Omeprazole (Omeprazole 20 Mg Capsule.Dr) 20 mg PO DAILY [facility] Last Admin: 03/22/23 08:31 Dose: 20 mg Sertraline HCl (Sertraline Hcl 50 Mg Tablet) 250 mg PO DAILY [facility] Last Admin: 03/22/23 08:31 Dose: 250 mg Trazodone HCl (Trazodone Hcl 50 Mg Tablet) 50 mg PO BEDTIME MRX1 PRN PRN Reason: Insomnia Last Admin: 03/20/23 20:42 Dose: 50 mg Allergies Allergies Allergy/AdvReac Type Severity Reaction Status Date / Time Latex, Natural Rubber AdvReac Rash Verified 03/14/23 16:44 Assessment & Plan Assessment & Plan (1) Major depressive disorder: Status: Acute Code(s): F32.9 - Major depressive disorder, single episode, unspecified (2) Neurodegenerative cognitive impairment: Status: Acute Code(s): G31.9 - Degenerative disease of nervous system, unspecified Plan The patient is an elderly male with no prior psychiatric history, admitted for suicidal thoughts and depression since his was admitted into a psychiatric unit. On interview, on admission, he was very confused and a very poor historian. According to crisis, the patient had a prior history of depression and started reading Wellbutrin. Plan 1. Gather collateral information the prep H and is a very poor historian and he is willing to start treatment. 2. Continue with Wellbutrin as prescribed. 3. Continue with medical workout. 4. Reassessment results. 5. Aricept 5 mg p.o. q.h.s. to target dementia, started on March 18. We are increasing up to 10 mg p.o. q.h.s. on March 20. 6. Start Namenda 5 mg p.o. daily on March 21. Reason for continued inpatient stay Substantial Risk for: inability to function, rapid decompensation and med/psych decompensation Time Spent With Patient Time: Total time managing care of this patient today __20__ minutes.
[2023-03-22 18:00] VITALS: BP 123/72; PULSE 78; RESP 16; TEMP 36.2; O2SAT 95
[2023-03-22] MEDS: Donepezil HCl 10 MG TABLET PO (20:50)
[2023-03-22] MEDS: Atorvastatin Calcium 40 MG TABLET PO (20:50)
[2023-03-23] MEDS: buPROPion HCl XL 150 MG TAB.ER.24H PO (08:47)
[2023-03-23] MEDS: lisinopriL 5 MG TABLET PO (08:47)
[2023-03-23] MEDS: Sertraline HCL 50 MG TABLET 250 MG PO (08:47)
[2023-03-23] MEDS: Omeprazole 20 MG CAPSULE.DR PO (08:50)
[2023-03-23] MEDS: Memantine HCl 5 MG TABLET PO ×2 (08:50→21:10)
--- NOTE | 2023-03-23 09:18 | HO.PSYCHPN ---
Subjective Subjective Date of Service: 03/23/23 Reason For Visit: psychosis Subjective Notes: Conditional Voluntary Interim History: It he staff reported the patient had been pleasant on approach confused denies suicidal ideation of hallucinations and he feels safe in the unit. On interview the patient is pleasantly confused, I explained that I am adding Namenda and we are going now b.i.d.. So far no side effects. Mental Status Exam Mental Status Exam Patient Appearance: Appropriate Patient Orientation: Person Level of Consciousness: Awake and Appropriate Patient Behavior: Guarded and Passive Mood Description: Withdrawn and Constricted Affect Description: Constricted Patient Cognition Impaired: Yes Ability to Follow Directions: Good Speech Pattern: Clear Hallucinations: None Delusions: Not Present Thought Process: Distracted and Slowed Thinking Thought Content: positive for [place] and positive for Poverty of Content Judgement: Fair Diagnostics Vital Signs (24Hr): Vital Signs - 24 hr 03/22/23 18:00 Temperature 97.1 F Pulse Rate 78 Respiratory Rate 16 Blood Pressure 123/72 Pulse Oximetry 95 Oxygen Delivery Method Room Air BMI result Body Mass Index 26.0 Labs 03/15/23 07:56 Medications Medications Current Medications Acetaminophen (Acetaminophen 325 Mg Tablet) 650 mg PO Q6H PRN PRN Reason: Headache/Pain Mild Scale (1-3) Last Admin: 03/17/23 06:02 Dose: 650 mg Acetaminophen (Acetaminophen 325 Mg Tablet) 975 mg PO BEDTIME PRN PRN Reason: Moderate Pain (Scale Score 5-6) Al Hydroxide/Mg Hydroxide (Magnesium Hydrox/Alum Hydrox 30 Ml Oral.Susp) 30 ml PO Q6H PRN PRN Reason: Heartburn/Nausea Atorvastatin Calcium (Atorvastatin Calcium 40 Mg Tablet) 40 mg PO BEDTIME RICK Last Admin: 03/22/23 20:50 Dose: 40 mg Bupropion HCl (Bupropion Hcl Xl 150 Mg Tab.Er.24h) 150 mg PO DAILY [facility] Last Admin: 03/23/23 08:47 Dose: 150 mg Donepezil HCl (Donepezil Hcl 10 Mg Tablet) 10 mg PO BEDTIME RICK Last Admin: 03/22/23 20:50 Dose: 10 mg Hydroxyzine HCl (Hydroxyzine Hcl 25 Mg Tablet) 25 mg PO Q6H PRN PRN Reason: Anxiety Last Admin: 03/14/23 21:26 Dose: 25 mg Lisinopril (Lisinopril 5 Mg Tablet) 5 mg PO DAILY [facility]; Protocol Last Admin: 03/23/23 08:47 Dose: 5 mg Magnesium Hydroxide (Milk Of Magnesia 30 Ml Oral.Susp) 30 ml PO DAILY PRN PRN Reason: Constipation Memantine (Memantine Hcl 5 Mg Tablet) 5 mg PO BID [facility] Last Admin: 03/23/23 08:50 Dose: 5 mg Omeprazole (Omeprazole 20 Mg Capsule.Dr) 20 mg PO DAILY [facility] Last Admin: 03/23/23 08:50 Dose: 20 mg Sertraline HCl (Sertraline Hcl 50 Mg Tablet) 250 mg PO DAILY [facility] Last Admin: 03/23/23 08:47 Dose: 250 mg Trazodone HCl (Trazodone Hcl 50 Mg Tablet) 50 mg PO BEDTIME MRX1 PRN PRN Reason: Insomnia Last Admin: 03/20/23 20:42 Dose: 50 mg Allergies Allergies Allergy/AdvReac Type Severity Reaction Status Date / Time Latex, Natural Rubber AdvReac Rash Verified 03/14/23 16:44 Assessment & Plan Assessment & Plan (1) Major depressive disorder: Status: Acute Code(s): F32.9 - Major depressive disorder, single episode, unspecified (2) Neurodegenerative cognitive impairment: Status: Acute Code(s): G31.9 - Degenerative disease of nervous system, unspecified Plan The patient is an elderly male with no prior psychiatric history, admitted for suicidal thoughts and depression since his was admitted into a psychiatric unit. On interview, on admission, he was very confused and a very poor historian. According to crisis, the patient had a prior history of depression and started reading Wellbutrin. Plan 1. Gather collateral information the prep H and is a very poor historian and he is willing to start treatment. 2. Continue with Wellbutrin as prescribed. 3. Continue with medical workout. 4. Reassessment results. 5. Aricept 5 mg p.o. q.h.s. to target dementia, started on March 18. We are increasing up to 10 mg p.o. q.h.s. on March 20. 6. Start Namenda 5 mg p.o. daily on March 21. We are changing to b.i.d. on March 23 Reason for continued inpatient stay Substantial Risk for: inability to function, rapid decompensation and med/psych decompensation Time Spent With Patient Time: Total time managing care of this patient today __20__ minutes.
[2023-03-23 09:20] VITALS: BP 131/63; PULSE 77; RESP 18; TEMP 36.6; O2SAT 98
[2023-03-23 18:00] VITALS: BP 125/60; PULSE 74; RESP 16; TEMP 36.2; O2SAT 93
[2023-03-23] MEDS: Donepezil HCl 10 MG TABLET PO (21:10)
[2023-03-23] MEDS: traZODone HCL 50 MG TABLET PO (21:10)
[2023-03-23] MEDS: Atorvastatin Calcium 40 MG TABLET PO (21:10)
[2023-03-24 06:00] VITALS: BP 128/71; PULSE 89; RESP 18; TEMP 36.6; O2SAT 96
[2023-03-24] MEDS: lisinopriL 5 MG TABLET PO (08:40)
[2023-03-24] MEDS: Memantine HCl 10 MG TABLET PO ×2 (08:40→20:42)
[2023-03-24] MEDS: Omeprazole 20 MG CAPSULE.DR PO (08:40)
[2023-03-24] MEDS: buPROPion HCl XL 150 MG TAB.ER.24H PO (08:40)
[2023-03-24] MEDS: Sertraline HCL 50 MG TABLET 250 MG PO (08:40)
--- NOTE | 2023-03-24 10:30 | HO.PSYCHPN ---
Subjective Subjective Date of Service: 03/24/23 Reason For Visit: psychosis Subjective Notes: Conditional Voluntary Interim History: The nursing staff reported the patient is confused at times, cooperative pleasant he was out for meals. He denies suicidal ideation. On interview the patient is pleasantly confused I explained that we are increasing his Namenda to 10 mg p.o. b.i.d. to target dementia. Mental Status Exam Mental Status Exam Patient Appearance: Appropriate Patient Orientation: Person and Situation Level of Consciousness: Awake and Appropriate Patient Behavior: Guarded and Passive Mood Description: Withdrawn Affect Description: Constricted Patient Cognition Impaired: Yes Ability to Follow Directions: Good Speech Pattern: Clear Hallucinations: None Delusions: Not Present Thought Process: Distracted and Slowed Thinking Thought Content: positive for [place] and positive for Poverty of Content Judgement: Fair Diagnostics Vital Signs (24Hr): Vital Signs - 24 hr 03/23/23 18:00 03/24/23 06:00 Temperature 97.2 F 97.9 F Pulse Rate 74 89 Respiratory Rate 16 18 Blood Pressure 125/60 128/71 Pulse Oximetry 93 96 Oxygen Delivery Method Room Air Room Air BMI result Body Mass Index 26.0 Labs 03/15/23 07:56 Medications Medications Current Medications Acetaminophen (Acetaminophen 325 Mg Tablet) 650 mg PO Q6H PRN PRN Reason: Headache/Pain Mild Scale (1-3) Last Admin: 03/17/23 06:02 Dose: 650 mg Acetaminophen (Acetaminophen 325 Mg Tablet) 975 mg PO BEDTIME PRN PRN Reason: Moderate Pain (Scale Score 5-6) Al Hydroxide/Mg Hydroxide (Magnesium Hydrox/Alum Hydrox 30 Ml Oral.Susp) 30 ml PO Q6H PRN PRN Reason: Heartburn/Nausea Atorvastatin Calcium (Atorvastatin Calcium 40 Mg Tablet) 40 mg PO BEDTIME [facility]ICK Last Admin: 03/23/23 21:10 Dose: 40 mg Bupropion HCl (Bupropion Hcl Xl 150 Mg Tab.Er.24h) 150 mg PO DAILY RICK Last Admin: 03/24/23 08:40 Dose: 150 mg Donepezil HCl (Donepezil Hcl 10 Mg Tablet) 10 mg PO BEDTIME RICK Last Admin: 03/23/23 21:10 Dose: 10 mg Hydroxyzine HCl (Hydroxyzine Hcl 25 Mg Tablet) 25 mg PO Q6H PRN PRN Reason: Anxiety Last Admin: 03/14/23 21:26 Dose: 25 mg Lisinopril (Lisinopril 5 Mg Tablet) 5 mg PO DAILY [facility]; Protocol Last Admin: 03/24/23 08:40 Dose: 5 mg Magnesium Hydroxide (Milk Of Magnesia 30 Ml Oral.Susp) 30 ml PO DAILY PRN PRN Reason: Constipation Memantine (Memantine Hcl 10 Mg Tablet) 10 mg PO BID [facility] Last Admin: 03/24/23 08:40 Dose: 10 mg Omeprazole (Omeprazole 20 Mg Capsule.Dr) 20 mg PO DAILY [facility] Last Admin: 03/24/23 08:40 Dose: 20 mg Sertraline HCl (Sertraline Hcl 50 Mg Tablet) 250 mg PO DAILY [facility] Last Admin: 03/24/23 08:40 Dose: 250 mg Trazodone HCl (Trazodone Hcl 50 Mg Tablet) 50 mg PO BEDTIME MRX1 PRN PRN Reason: Insomnia Last Admin: 03/20/23 20:42 Dose: 50 mg Trazodone HCl (Trazodone Hcl 50 Mg Tablet) 50 mg PO BEDTIME [facility] Last Admin: 03/23/23 21:10 Dose: 50 mg Allergies Allergies Allergy/AdvReac Type Severity Reaction Status Date / Time Latex, Natural Rubber AdvReac Rash Verified 03/14/23 16:44 Assessment & Plan Assessment & Plan (1) Major depressive disorder: Status: Acute Code(s): F32.9 - Major depressive disorder, single episode, unspecified (2) Neurodegenerative cognitive impairment: Status: Acute Code(s): G31.9 - Degenerative disease of nervous system, unspecified Plan The patient is an elderly male with no prior psychiatric history, admitted for suicidal thoughts and depression since his was admitted into a psychiatric unit. On interview, on admission, he was very confused and a very poor historian. According to crisis, the patient had a prior history of depression and started reading Wellbutrin. Plan 1. Gather collateral information the prep H and is a very poor historian and he is willing to start treatment. 2. Continue with Wellbutrin as prescribed. 3. Continue with medical workout. 4. Reassessment results. 5. Aricept 5 mg p.o. q.h.s. to target dementia, started on March 18. We are increasing up to 10 mg p.o. q.h.s. on March 20. 6. Start Namenda 5 mg p.o. daily on March 21. We are changing to b.i.d. on March 23. On April 03 we are increasing to 10 mg p.o. b.i.d. Reason for continued inpatient stay Substantial Risk for: inability to function, rapid decompensation and med/psych decompensation Time Spent With Patient Time: Total time managing care of this patient today __20__ minutes.
[2023-03-24 18:00] VITALS: BP 105/62; PULSE 91; RESP 17; TEMP 36.3; O2SAT 93
[2023-03-24] MEDS: Donepezil HCl 10 MG TABLET PO (20:42)
[2023-03-24] MEDS: traZODone HCL 50 MG TABLET PO (20:42)
[2023-03-24] MEDS: Atorvastatin Calcium 40 MG TABLET PO (20:42)
[2023-03-25 08:00] VITALS: BP 127/78; PULSE 93; RESP 18; TEMP 36.6; O2SAT 94
--- NOTE | 2023-03-25 09:05 | P.PNPSI_ITS ---
Subjective Subjective Date of Service: 03/25/23 Reason For Visit: psychosis Subjective Notes: Conditional Voluntary Interim History: The nursing staff reported the patient had been pleasantly confused, mostly a in his bed easily redirectable. The social media marketing manager is trying to work on placement. On interview the patient denies new symptoms pleasantly confused, easily redirectable. Mental Status Exam Mental Status Exam Patient Appearance: Appropriate Patient Orientation: Person and Situation Level of Consciousness: Awake and Appropriate Patient Behavior: Guarded and Passive Mood Description: Withdrawn Affect Description: Constricted Patient Cognition Impaired: Yes Ability to Follow Directions: Good Speech Pattern: Clear Hallucinations: None Delusions: Not Present Thought Process: Distracted and Linear Thought Content: positive for [place] and positive for Poverty of Content Judgement: Fair Diagnostics Vital Signs (24Hr): Vital Signs - 24 hr 03/24/23 18:00 Temperature 97.4 F Pulse Rate 91 Respiratory Rate 17 Blood Pressure 105/62 Pulse Oximetry 93 Oxygen Delivery Method Room Air BMI result Body Mass Index 26.0 Labs 03/15/23 07:56 Medications Medications Current Medications Acetaminophen (Acetaminophen 325 Mg Tablet) 650 mg PO Q6H PRN PRN Reason: Headache/Pain Mild Scale (1-3) Last Admin: 03/17/23 06:02 Dose: 650 mg Acetaminophen (Acetaminophen 325 Mg Tablet) 975 mg PO BEDTIME PRN PRN Reason: Moderate Pain (Scale Score 5-6) Al Hydroxide/Mg Hydroxide (Magnesium Hydrox/Alum Hydrox 30 Ml Oral.Susp) 30 ml PO Q6H PRN PRN Reason: Heartburn/Nausea Atorvastatin Calcium (Atorvastatin Calcium 40 Mg Tablet) 40 mg PO BEDTIME RICK Last Admin: 03/24/23 20:42 Dose: 40 mg Bupropion HCl (Bupropion Hcl Xl 150 Mg Tab.Er.24h) 150 mg PO DAILY RICK Last Admin: 03/24/23 08:40 Dose: 150 mg Donepezil HCl (Donepezil Hcl 10 Mg Tablet) 10 mg PO BEDTIME RICK Last Admin: 03/24/23 20:42 Dose: 10 mg Hydroxyzine HCl (Hydroxyzine Hcl 25 Mg Tablet) 25 mg PO Q6H PRN PRN Reason: Anxiety Last Admin: 03/14/23 21:26 Dose: 25 mg Lisinopril (Lisinopril 5 Mg Tablet) 5 mg PO DAILY [facility]; Protocol Last Admin: 03/24/23 08:40 Dose: 5 mg Magnesium Hydroxide (Milk Of Magnesia 30 Ml Oral.Susp) 30 ml PO DAILY PRN PRN Reason: Constipation Memantine (Memantine Hcl 10 Mg Tablet) 10 mg PO BID [facility] Last Admin: 03/24/23 20:42 Dose: 10 mg Omeprazole (Omeprazole 20 Mg Capsule.Dr) 20 mg PO DAILY [facility] Last Admin: 03/24/23 08:40 Dose: 20 mg Sertraline HCl (Sertraline Hcl 50 Mg Tablet) 250 mg PO DAILY [facility] Last Admin: 03/24/23 08:40 Dose: 250 mg Trazodone HCl (Trazodone Hcl 50 Mg Tablet) 50 mg PO BEDTIME MRX1 PRN PRN Reason: Insomnia Last Admin: 03/20/23 20:42 Dose: 50 mg Trazodone HCl (Trazodone Hcl 50 Mg Tablet) 50 mg PO BEDTIME [facility] Last Admin: 03/24/23 20:42 Dose: 50 mg Allergies Allergies Allergy/AdvReac Type Severity Reaction Status Date / Time Latex, Natural Rubber AdvReac Rash Verified 03/14/23 16:44 Assessment & Plan Assessment & Plan (1) Major depressive disorder: Status: Acute Code(s): F32.9 - Major depressive disorder, single episode, unspecified (2) Dementia: Status: Acute Code(s): F03.90 - Unspecified dementia, unspecified severity, without behavioral disturbance, psychotic disturbance, mood disturbance, and anxiety Plan The patient is an elderly male with no prior psychiatric history, admitted for suicidal thoughts and depression since his was admitted into a psychiatric unit. On interview, on admission, he was very confused and a very poor historian. According to crisis, the patient had a prior history of depression and started reading Wellbutrin. Plan 1. Gather collateral information the prep H and is a very poor historian and he is willing to start treatment. 2. Continue with Wellbutrin as prescribed. 3. Continue with medical workout. 4. Reassessment results. 5. Aricept 5 mg p.o. q.h.s. to target dementia, started on March 18. We are increasing up to 10 mg p.o. q.h.s. on March 20. 6. Start Namenda 5 mg p.o. daily on March 21. We are changing to b.i.d. on March 23. On April 03 we are increasing to 10 mg p.o. b.i.d. Reason for continued inpatient stay Substantial Risk for: inability to function, rapid decompensation and med/psych decompensation Time Spent With Patient Time: Total time managing care of this patient today __20__ minutes.
[2023-03-25] MEDS: lisinopriL 5 MG TABLET PO (11:23)
[2023-03-25] MEDS: Omeprazole 20 MG CAPSULE.DR PO (11:23)
[2023-03-25] MEDS: Memantine HCl 10 MG TABLET PO ×2 (11:23→20:51)
[2023-03-25] MEDS: Sertraline HCL 50 MG TABLET 250 MG PO (11:23)
[2023-03-25] MEDS: buPROPion HCl XL 150 MG TAB.ER.24H PO (11:23)
[2023-03-25] MEDS: traZODone HCL 50 MG TABLET PO (20:50)
[2023-03-25] MEDS: Atorvastatin Calcium 40 MG TABLET PO (20:50)
[2023-03-25] MEDS: Donepezil HCl 10 MG TABLET PO (20:51)
[2023-03-26 07:45] VITALS: BP 132/71; PULSE 82; RESP 18; TEMP 36.1; O2SAT 98
[2023-03-26] MEDS: buPROPion HCl XL 150 MG TAB.ER.24H PO (09:33)
[2023-03-26] MEDS: Omeprazole 20 MG CAPSULE.DR PO (09:34)
[2023-03-26] MEDS: lisinopriL 5 MG TABLET PO (09:34)
[2023-03-26] MEDS: Memantine HCl 10 MG TABLET PO ×2 (09:35→20:32)
[2023-03-26] MEDS: Sertraline HCL 50 MG TABLET 250 MG PO (09:38)
--- NOTE | 2023-03-26 12:19 | HO.PSYCHPN ---
Subjective Subjective Date of Service: 03/26/23 Reason For Visit: psychosis Subjective Notes: Conditional Voluntary Interim History: The nursing staff reported the patient had been pleasant, quiet cooperative most of the time in his room denies new symptoms and he slept well. The occupational therapist reported that he went to groups yesterday in the afternoon. The social worker psychiatric will contact his brother to workout on assisted living facility. On interview the patient denies new symptoms pleasantly confused, easily redirectable. Mental Status Exam Mental Status Exam Patient Appearance: Well Grooomed and Appropriate Patient Orientation: Person and Situation Level of Consciousness: Awake and Appropriate Patient Behavior: Guarded and Passive Mood Description: Withdrawn Affect Description: Calm and Constricted Patient Cognition Impaired: Yes Ability to Follow Directions: Good Speech Pattern: Clear Hallucinations: None Delusions: Not Present Thought Process: Distracted and Linear Thought Content: positive for Poverty of Content Judgement: Fair Diagnostics Vital Signs (24Hr): Vital Signs - 24 hr 03/26/23 07:45 Temperature 96.9 F Pulse Rate 82 Respiratory Rate 18 Blood Pressure 132/71 Pulse Oximetry 98 Oxygen Delivery Method Room Air BMI result Body Mass Index 26.0 Labs 03/15/23 07:56 Medications Medications Current Medications Acetaminophen (Acetaminophen 325 Mg Tablet) 650 mg PO Q6H PRN PRN Reason: Headache/Pain Mild Scale (1-3) Last Admin: 03/17/23 06:02 Dose: 650 mg Acetaminophen (Acetaminophen 325 Mg Tablet) 975 mg PO BEDTIME PRN PRN Reason: Moderate Pain (Scale Score 5-6) Al Hydroxide/Mg Hydroxide (Magnesium Hydrox/Alum Hydrox 30 Ml Oral.Susp) 30 ml PO Q6H PRN PRN Reason: Heartburn/Nausea Atorvastatin Calcium (Atorvastatin Calcium 40 Mg Tablet) 40 mg PO BEDTIME RICK Last Admin: 03/25/23 20:50 Dose: 40 mg Bupropion HCl (Bupropion Hcl Xl 150 Mg Tab.Er.24h) 150 mg PO DAILY RICK Last Admin: 03/26/23 09:33 Dose: 150 mg Donepezil HCl (Donepezil Hcl 10 Mg Tablet) 10 mg PO BEDTIME RICK Last Admin: 03/25/23 20:51 Dose: 10 mg Hydroxyzine HCl (Hydroxyzine Hcl 25 Mg Tablet) 25 mg PO Q6H PRN PRN Reason: Anxiety Last Admin: 03/14/23 21:26 Dose: 25 mg Lisinopril (Lisinopril 5 Mg Tablet) 5 mg PO DAILY [facility]; Protocol Last Admin: 03/26/23 09:34 Dose: 5 mg Magnesium Hydroxide (Milk Of Magnesia 30 Ml Oral.Susp) 30 ml PO DAILY PRN PRN Reason: Constipation Memantine (Memantine Hcl 10 Mg Tablet) 10 mg PO BID [facility] Last Admin: 03/26/23 09:35 Dose: 10 mg Omeprazole (Omeprazole 20 Mg Capsule.Dr) 20 mg PO DAILY [facility] Last Admin: 03/26/23 09:34 Dose: 20 mg Sertraline HCl (Sertraline Hcl 50 Mg Tablet) 250 mg PO DAILY [facility] Last Admin: 03/26/23 09:38 Dose: 250 mg Trazodone HCl (Trazodone Hcl 50 Mg Tablet) 50 mg PO BEDTIME MRX1 PRN PRN Reason: Insomnia Last Admin: 03/20/23 20:42 Dose: 50 mg Trazodone HCl (Trazodone Hcl 50 Mg Tablet) 50 mg PO BEDTIME [facility] Last Admin: 03/25/23 20:50 Dose: 50 mg Allergies Allergies Allergy/AdvReac Type Severity Reaction Status Date / Time Latex, Natural Rubber AdvReac Rash Verified 03/14/23 16:44 Assessment & Plan Assessment & Plan (1) Major depressive disorder: Status: Acute Code(s): F32.9 - Major depressive disorder, single episode, unspecified (2) Dementia: Status: Acute Code(s): F03.90 - Unspecified dementia, unspecified severity, without behavioral disturbance, psychotic disturbance, mood disturbance, and anxiety Plan The patient is an elderly male with no prior psychiatric history, admitted for suicidal thoughts and depression since his was admitted into a psychiatric unit. On interview, on admission, he was very confused and a very poor historian. According to crisis, the patient had a prior history of depression and started reading Wellbutrin. Plan 1. Gather collateral information the prep H and is a very poor historian and he is willing to start treatment. 2. Continue with Wellbutrin as prescribed. 3. Continue with medical workout. 4. Reassessment results. 5. Aricept 5 mg p.o. q.h.s. to target dementia, started on March 18. We are increasing up to 10 mg p.o. q.h.s. on March 20. 6. Start Namenda 5 mg p.o. daily on March 21. We are changing to b.i.d. on March 23. On April 03 we are increasing to 10 mg p.o. b.i.d. Reason for continued inpatient stay Substantial Risk for: inability to function, rapid decompensation and med/psych decompensation Time Spent With Patient Time: Total time managing care of this patient today __20__ minutes.
[2023-03-26 18:00] VITALS: BP 108/61; PULSE 74; RESP 17; TEMP 36.9; O2SAT 95
[2023-03-26] MEDS: Atorvastatin Calcium 40 MG TABLET PO (20:32)
[2023-03-26] MEDS: Donepezil HCl 10 MG TABLET PO (20:32)
[2023-03-26] MEDS: traZODone HCL 50 MG TABLET PO (20:32)
[2023-03-27 08:40] VITALS: BP 119/74; PULSE 85; RESP 16; TEMP 36.2; O2SAT 97
[2023-03-27] MEDS: Omeprazole 20 MG CAPSULE.DR PO (08:43)
[2023-03-27] MEDS: lisinopriL 5 MG TABLET PO (08:43)
[2023-03-27] MEDS: Memantine HCl 10 MG TABLET PO ×2 (08:43→20:33)
[2023-03-27] MEDS: Sertraline HCL 50 MG TABLET 250 MG PO (08:43)
[2023-03-27] MEDS: buPROPion HCl XL 150 MG TAB.ER.24H PO (08:43)
--- NOTE | 2023-03-27 17:43 | P.PNPSI_ITS ---
Subjective Subjective Date of Service: 03/27/23 Reason For Visit: psychosis Interim History: met with patient; discussed with team staff reports pt has urine with strong order and asking for UA. Pt reports he's doing fine, denies any dysuria however agrees to UA. Denies any complaints Mental Status Exam Mental Status Exam Patient Appearance: Well Grooomed and Appropriate Patient Orientation: Person and Situation Level of Consciousness: Awake and Appropriate Patient Behavior: Guarded and Passive Mood Description: Withdrawn Affect Description: Calm and Constricted Patient Cognition Impaired: Yes Ability to Follow Directions: Good Speech Pattern: Clear Hallucinations: None Delusions: Not Present Thought Process: Distracted and Linear Thought Content: positive for Poverty of Content Judgement: Fair Diagnostics Vital Signs (24Hr): Vital Signs - 24 hr 03/26/23 18:00 03/27/23 08:40 Temperature 98.4 F 97.2 F Pulse Rate 74 85 Respiratory Rate 17 16 Blood Pressure 108/61 119/74 Pulse Oximetry 95 97 Oxygen Delivery Method Room Air Room Air BMI result Body Mass Index 26.0 Labs 03/15/23 07:56 Medications Medications Current Medications Acetaminophen (Acetaminophen 325 Mg Tablet) 650 mg PO Q6H PRN PRN Reason: Headache/Pain Mild Scale (1-3) Last Admin: 03/17/23 06:02 Dose: 650 mg Acetaminophen (Acetaminophen 325 Mg Tablet) 975 mg PO BEDTIME PRN PRN Reason: Moderate Pain (Scale Score 5-6) Al Hydroxide/Mg Hydroxide (Magnesium Hydrox/Alum Hydrox 30 Ml Oral.Susp) 30 ml PO Q6H PRN PRN Reason: Heartburn/Nausea Atorvastatin Calcium (Atorvastatin Calcium 40 Mg Tablet) 40 mg PO BEDTIME RICK Last Admin: 03/26/23 20:32 Dose: 40 mg Bupropion HCl (Bupropion Hcl Xl 150 Mg Tab.Er.24h) 150 mg PO DAILY RICK Last Admin: 03/27/23 08:43 Dose: 150 mg Donepezil HCl (Donepezil Hcl 10 Mg Tablet) 10 mg PO BEDTIME RICK Last Admin: 03/26/23 20:32 Dose: 10 mg Hydroxyzine HCl (Hydroxyzine Hcl 25 Mg Tablet) 25 mg PO Q6H PRN PRN Reason: Anxiety Last Admin: 03/14/23 21:26 Dose: 25 mg Lisinopril (Lisinopril 5 Mg Tablet) 5 mg PO DAILY [facility]; Protocol Last Admin: 03/27/23 08:43 Dose: 5 mg Magnesium Hydroxide (Milk Of Magnesia 30 Ml Oral.Susp) 30 ml PO DAILY PRN PRN Reason: Constipation Memantine (Memantine Hcl 10 Mg Tablet) 10 mg PO BID [facility] Last Admin: 03/27/23 08:43 Dose: 10 mg Omeprazole (Omeprazole 20 Mg Capsule.Dr) 20 mg PO DAILY [facility] Last Admin: 03/27/23 08:43 Dose: 20 mg Sertraline HCl (Sertraline Hcl 50 Mg Tablet) 250 mg PO DAILY [facility] Last Admin: 03/27/23 08:43 Dose: 250 mg Trazodone HCl (Trazodone Hcl 50 Mg Tablet) 50 mg PO BEDTIME [facility] Last Admin: 03/26/23 20:32 Dose: 50 mg Allergies Allergies Allergy/AdvReac Type Severity Reaction Status Date / Time Latex, Natural Rubber AdvReac Rash Verified 03/14/23 16:44 Assessment & Plan Assessment & Plan (1) Major depressive disorder: Status: Acute Code(s): F32.9 - Major depressive disorder, single episode, unspecified (2) Dementia: Status: Acute Code(s): F03.90 - Unspecified dementia, unspecified severity, without behavioral disturbance, psychotic disturbance, mood disturbance, and anxiety Plan The patient is an elderly male with no prior psychiatric history, admitted for suicidal thoughts and depression since his was admitted into a psychiatric unit. On interview, on admission, he was very confused and a very poor historian. According to crisis, the patient had a prior history of depression and started reading Wellbutrin. 03/27 ordering UA Plan 1. Gather collateral information the prep H and is a very poor historian and he is willing to start treatment. 2. Continue with Wellbutrin as prescribed. 3. Continue with medical workout. 4. Reassessment results. 5. Aricept 5 mg p.o. q.h.s. to target dementia, started on March 18. We are increasing up to 10 mg p.o. q.h.s. on March 20. 6. Start Namenda 5 mg p.o. daily on March 21. We are changing to b.i.d. on March 23. On April 03 we are increasing to 10 mg p.o. b.i.d. Patient educated on: medical condition Informed Consent: understands Reason for continued inpatient stay Substantial Risk for: med/psych decompensation Time Spent With Patient Time: Total time managing care of this patient today ____ minutes.
[2023-03-27 18:00] VITALS: BP 146/74; PULSE 89; RESP 16; TEMP 36.4; O2SAT 97
[2023-03-27] MEDS: Atorvastatin Calcium 40 MG TABLET PO (20:32)
[2023-03-27] MEDS: traZODone HCL 50 MG TABLET PO (20:33)
[2023-03-27] MEDS: Donepezil HCl 10 MG TABLET PO (20:33)
[2023-03-28 07:00] VITALS: BMI 26.1
[2023-03-28 08:00] VITALS: BP 146/77; PULSE 65; RESP 18; TEMP 36.7
[2023-03-28] MEDS: Memantine HCl 10 MG TABLET PO ×2 (08:30→20:25)
[2023-03-28] MEDS: lisinopriL 5 MG TABLET PO (08:30)
[2023-03-28] MEDS: buPROPion HCl XL 150 MG TAB.ER.24H PO (08:31)
[2023-03-28] MEDS: Omeprazole 20 MG CAPSULE.DR PO (08:31)
[2023-03-28] MEDS: Sertraline HCL 100 MG TABLET 200 MG PO (09:55)
[2023-03-28] MEDS: Sertraline HCL 50 MG TABLET PO (10:01)
--- NOTE | 2023-03-28 14:53 | HO.PSYCHPN ---
Subjective Subjective Date of Service: 03/28/23 Reason For Visit: psychosis Subjective Notes: Conditional Voluntary Interim History: The nursing staff reported patient is compliant with treatment, he had been more social, he attended groups. The social services assistant reported that his brother called and they want to discharge him back to home with his early next week. On interview the patient denies new symptoms, denies suicidal ideation able to contract for safety. But still demented with poor short-term memory. Mental Status Exam Mental Status Exam Patient Appearance: Well Grooomed and Appropriate Patient Orientation: Person and Situation Level of Consciousness: Awake and Appropriate Patient Behavior: Guarded and Passive Mood Description: Withdrawn Affect Description: Constricted Patient Cognition Impaired: Yes Ability to Follow Directions: Good Speech Pattern: Clear Hallucinations: None Delusions: Not Present Thought Process: Linear Thought Content: positive for [place] and positive for Poverty of Content Judgement: Fair Diagnostics Vital Signs (24Hr): Vital Signs - 24 hr 03/27/23 18:00 03/28/23 08:00 Temperature 97.6 F 98.1 F Pulse Rate 89 65 Respiratory Rate 16 18 Blood Pressure 146/74 H 146/77 H Pulse Oximetry 97 Oxygen Delivery Method Room Air BMI result Body Mass Index 26.1 Labs 03/15/23 07:56 Medications Medications Current Medications Acetaminophen (Acetaminophen 325 Mg Tablet) 650 mg PO Q6H PRN PRN Reason: Headache/Pain Mild Scale (1-3) Last Admin: 03/17/23 06:02 Dose: 650 mg Acetaminophen (Acetaminophen 325 Mg Tablet) 975 mg PO BEDTIME PRN PRN Reason: Moderate Pain (Scale Score 5-6) Al Hydroxide/Mg Hydroxide (Magnesium Hydrox/Alum Hydrox 30 Ml Oral.Susp) 30 ml PO Q6H PRN PRN Reason: Heartburn/Nausea Atorvastatin Calcium (Atorvastatin Calcium 40 Mg Tablet) 40 mg PO BEDTIME RICK Last Admin: 03/27/23 20:32 Dose: 40 mg Bupropion HCl (Bupropion Hcl Xl 150 Mg Tab.Er.24h) 150 mg PO DAILY [facility]ICK Last Admin: 03/28/23 08:31 Dose: 150 mg Donepezil HCl (Donepezil Hcl 10 Mg Tablet) 10 mg PO BEDTIME RICK Last Admin: 03/27/23 20:33 Dose: 10 mg Hydroxyzine HCl (Hydroxyzine Hcl 25 Mg Tablet) 25 mg PO Q6H PRN PRN Reason: Anxiety Last Admin: 03/14/23 21:26 Dose: 25 mg Lisinopril (Lisinopril 5 Mg Tablet) 5 mg PO DAILY [facility]; Protocol Last Admin: 03/28/23 08:30 Dose: 5 mg Magnesium Hydroxide (Milk Of Magnesia 30 Ml Oral.Susp) 30 ml PO DAILY PRN PRN Reason: Constipation Memantine (Memantine Hcl 10 Mg Tablet) 10 mg PO BID [facility] Last Admin: 03/28/23 08:30 Dose: 10 mg Omeprazole (Omeprazole 20 Mg Capsule.Dr) 20 mg PO DAILY [facility] Last Admin: 03/28/23 08:31 Dose: 20 mg Sertraline HCl (Sertraline Hcl 100 Mg Tablet) 200 mg PO DAILY [facility] Last Admin: 03/28/23 09:55 Dose: 200 mg Sertraline HCl (Sertraline Hcl 50 Mg Tablet) 50 mg PO DAILY [facility] Last Admin: 03/28/23 10:01 Dose: 50 mg Trazodone HCl (Trazodone Hcl 50 Mg Tablet) 50 mg PO BEDTIME [facility] Last Admin: 03/27/23 20:33 Dose: 50 mg Allergies Allergies Allergy/AdvReac Type Severity Reaction Status Date / Time Latex, Natural Rubber AdvReac Rash Verified 03/14/23 16:44 Assessment & Plan Assessment & Plan (1) Major depressive disorder: Status: Acute Code(s): F32.9 - Major depressive disorder, single episode, unspecified (2) Dementia: Status: Acute Code(s): F03.90 - Unspecified dementia, unspecified severity, without behavioral disturbance, psychotic disturbance, mood disturbance, and anxiety Plan The patient is an elderly male with no prior psychiatric history, admitted for suicidal thoughts and depression since his was admitted into a psychiatric unit. On interview, on admission, he was very confused and a very poor historian. According to crisis, the patient had a prior history of depression and started reading Wellbutrin. Plan 1. Gather collateral information the prep H and is a very poor historian and he is willing to start treatment. 2. Continue with Wellbutrin as prescribed. 3. Continue with medical workout. 4. Reassessment results. 5. Aricept 5 mg p.o. q.h.s. to target dementia, started on March 18. We are increasing up to 10 mg p.o. q.h.s. on March 20. 6. Start Namenda 5 mg p.o. daily on March 21. We are changing to b.i.d. on March 23. On April 03 we are increasing to 10 mg p.o. b.i.d. Reason for continued inpatient stay Substantial Risk for: inability to function, rapid decompensation and med/psych decompensation Time Spent With Patient Time: Total time managing care of this patient today __20__ minutes.
[2023-03-28 15:25] LABS: Appearance Urine Clear; Color Urine Yellow; Glucose Urine UA Negative (Negative); Leukocyte Esterase Urine Negative (Negative); Nitrite Urine Negative (Negative); PH 5.5 (5.0-9.0); Specific Gravity - Urine 1.025 (1.005-1.025); Urine Blood Negative (Negative); Urine Ketones Trace mg/dL (Negative); Urine Protein Negative (Neg-Trace)
[2023-03-28 15:36] LABS: Bacteria Urine None Seen (None Seen); RBC Urine 0-2 /HPF (0-2); WBC Urine 0-5 /HPF (0-5)
[2023-03-28 19:35] VITALS: BP 116/67; PULSE 69; RESP 18; TEMP 36.7; O2SAT 95
[2023-03-28] MEDS: traZODone HCL 50 MG TABLET PO (20:26)
[2023-03-28] MEDS: Atorvastatin Calcium 40 MG TABLET PO (20:26)
[2023-03-28] MEDS: Donepezil HCl 10 MG TABLET PO (20:26)
[2023-03-29 08:00] VITALS: BP 113/70; PULSE 87; RESP 18; TEMP 36.6; O2SAT 97
[2023-03-29] MEDS: lisinopriL 5 MG TABLET PO (08:36)
[2023-03-29] MEDS: Sertraline HCL 100 MG TABLET 200 MG PO (08:36)
[2023-03-29] MEDS: buPROPion HCl XL 150 MG TAB.ER.24H PO (08:36)
[2023-03-29] MEDS: Omeprazole 20 MG CAPSULE.DR PO (08:36)
[2023-03-29] MEDS: Sertraline HCL 50 MG TABLET PO (08:37)
[2023-03-29] MEDS: Memantine HCl 10 MG TABLET PO ×2 (08:37→20:45)
[2023-03-29] MEDS: Docusate Sodium 100 MG CAPSULE PO (09:31)
--- NOTE | 2023-03-29 14:41 | HO.PSYCHPN ---
Subjective Subjective Date of Service: 03/29/23 Reason For Visit: psychosis Subjective Notes: Conditional Voluntary Interim History: The nursing staff reported the patient is alert, cooperative pleasant compliant with treatment. He slept well last night. The social services counselor reported that his would be most likely discharge next Saturday so he can be discharged home. No safety concerns. Mental Status Exam Mental Status Exam Patient Appearance: Appropriate Patient Orientation: Person and Situation Level of Consciousness: Awake and Appropriate Patient Behavior: Guarded and Passive Mood Description: Withdrawn Affect Description: Constricted Patient Cognition Impaired: Yes Ability to Follow Directions: Good Speech Pattern: Clear Hallucinations: None Delusions: Not Present Thought Process: Distracted and Slowed Thinking Thought Content: positive for [place] and positive for Poverty of Content Judgement: Poor Diagnostics Vital Signs (24Hr): Vital Signs - 24 hr 03/28/23 19:35 03/29/23 08:00 Temperature 98.1 F 97.9 F Pulse Rate 69 87 Respiratory Rate 18 18 Blood Pressure 116/67 113/70 Pulse Oximetry 95 97 Oxygen Delivery Method Room Air Room Air BMI result Body Mass Index 26.1 Labs 03/15/23 07:56 Labs: Laboratory Results - last 48 hr 03/28/23 14:45 Urine Color Yellow Urine Appearance Clear Urine pH 5.5 Ur Specific [place] 1.025 Urine Protein Negative Urine Glucose (UA) Negative Urine Ketones Trace Urine Blood Negative Urine Nitrite Negative Ur Leukocyte Esterase Negative Urine RBC 0-2 Urine WBC 0-5 Ur Squamous Epith Cells 3-5 Urine Bacteria None Seen Hyaline Casts 6-10 Medications Medications Current Medications Acetaminophen (Acetaminophen 325 Mg Tablet) 650 mg PO Q6H PRN PRN Reason: Headache/Pain Mild Scale (1-3) Last Admin: 03/17/23 06:02 Dose: 650 mg Acetaminophen (Acetaminophen 325 Mg Tablet) 975 mg PO BEDTIME PRN PRN Reason: Moderate Pain (Scale Score 5-6) Al Hydroxide/Mg Hydroxide (Magnesium Hydrox/Alum Hydrox 30 Ml Oral.Susp) 30 ml PO Q6H PRN PRN Reason: Heartburn/Nausea Atorvastatin Calcium (Atorvastatin Calcium 40 Mg Tablet) 40 mg PO BEDTIME [facility] Last Admin: 03/28/23 20:26 Dose: 40 mg Bupropion HCl (Bupropion Hcl Xl 150 Mg Tab.Er.24h) 150 mg PO DAILY [facility] Last Admin: 03/29/23 08:36 Dose: 150 mg Docusate Sodium (Docusate Sodium 100 Mg Capsule) 100 mg PO BID PRN PRN Reason: Constipation Last Admin: 03/29/23 09:31 Dose: 100 mg Donepezil HCl (Donepezil Hcl 10 Mg Tablet) 10 mg PO BEDTIME [facility] Last Admin: 03/28/23 20:26 Dose: 10 mg Hydroxyzine HCl (Hydroxyzine Hcl 25 Mg Tablet) 25 mg PO Q6H PRN PRN Reason: Anxiety Last Admin: 03/14/23 21:26 Dose: 25 mg Lisinopril (Lisinopril 5 Mg Tablet) 5 mg PO DAILY [facility]; Protocol Last Admin: 03/29/23 08:36 Dose: 5 mg Magnesium Hydroxide (Milk Of Magnesia 30 Ml Oral.Susp) 30 ml PO DAILY PRN PRN Reason: Constipation Memantine (Memantine Hcl 10 Mg Tablet) 10 mg PO BID [facility] Last Admin: 03/29/23 08:37 Dose: 10 mg Omeprazole (Omeprazole 20 Mg Capsule.Dr) 20 mg PO DAILY [facility] Last Admin: 03/29/23 08:36 Dose: 20 mg Sertraline HCl (Sertraline Hcl 100 Mg Tablet) 200 mg PO DAILY [facility] Last Admin: 03/29/23 08:36 Dose: 200 mg Sertraline HCl (Sertraline Hcl 50 Mg Tablet) 50 mg PO DAILY [facility] Last Admin: 03/29/23 08:37 Dose: 50 mg Trazodone HCl (Trazodone Hcl 50 Mg Tablet) 50 mg PO BEDTIME [facility] Last Admin: 03/28/23 20:26 Dose: 50 mg Allergies Allergies Allergy/AdvReac Type Severity Reaction Status Date / Time Latex, Natural Rubber AdvReac Rash Verified 03/14/23 16:44 Assessment & Plan Assessment & Plan (1) Major depressive disorder: Status: Acute Code(s): F32.9 - Major depressive disorder, single episode, unspecified (2) Dementia: Status: Acute Code(s): F03.90 - Unspecified dementia, unspecified severity, without behavioral disturbance, psychotic disturbance, mood disturbance, and anxiety Plan The patient is an elderly male with no prior psychiatric history, admitted for suicidal thoughts and depression since his was admitted into a psychiatric unit. On interview, on admission, he was very confused and a very poor historian. According to crisis, the patient had a prior history of depression and started reading Wellbutrin. 11/8 ordering UA Plan 1. Gather collateral information the prep H and is a very poor historian and he is willing to start treatment. 2. Continue with Wellbutrin as prescribed. 3. Continue with medical workout. 4. Reassessment results. 5. Aricept 5 mg p.o. q.h.s. to target dementia, started on March 18. We are increasing up to 10 mg p.o. q.h.s. on March 20. 6. Start Namenda 5 mg p.o. daily on March 21. We are changing to b.i.d. on March 23. On April 03 we are increasing to 10 mg p.o. b.i.d. Reason for continued inpatient stay Substantial Risk for: inability to function, rapid decompensation and med/psych decompensation Time Spent With Patient Time: Total time managing care of this patient today __20__ minutes.
--- NOTE | 2023-03-29 17:40 | PC.NURSE ---
PRN Colace effective, pt reported having BM before supper..
[2023-03-29 18:00] VITALS: BP 125/66; PULSE 73; RESP 17; TEMP 36.3; O2SAT 93
[2023-03-29] MEDS: Donepezil HCl 10 MG TABLET PO (20:45)
[2023-03-29] MEDS: Atorvastatin Calcium 40 MG TABLET PO (20:45)
[2023-03-29] MEDS: traZODone HCL 50 MG TABLET PO (20:45)
[2023-03-30 08:00] VITALS: BP 128/77; PULSE 79; RESP 18; TEMP 35.9; O2SAT 94
[2023-03-30] MEDS: buPROPion HCl XL 150 MG TAB.ER.24H PO (09:00)
[2023-03-30] MEDS: Omeprazole 20 MG CAPSULE.DR PO (09:00)
[2023-03-30] MEDS: Sertraline HCL 100 MG TABLET 200 MG PO (09:00)
[2023-03-30] MEDS: lisinopriL 5 MG TABLET PO (09:01)
[2023-03-30] MEDS: Sertraline HCL 50 MG TABLET PO (09:01)
[2023-03-30] MEDS: Memantine HCl 10 MG TABLET PO ×2 (09:01→20:48)
--- NOTE | 2023-03-30 11:58 | P.PNPSI_ITS ---
Subjective Subjective Date of Service: 03/30/23 Reason For Visit: psychosis Interim History: calm, cooperative. c/o sore throat, agreeable to cepacol lozenges. no other complaints or requests. per staff, flat, slept 8 hours, no change in presentation. Mental Status Exam Mental Status Exam Patient Appearance: Appropriate Patient Orientation: Person and Situation Level of Consciousness: Awake and Appropriate Patient Behavior: Guarded and Passive Mood Description: Withdrawn Affect Description: Constricted Patient Cognition Impaired: Yes Ability to Follow Directions: Good Speech Pattern: Clear Hallucinations: None Delusions: Not Present Thought Process: Distracted and Slowed Thinking Thought Content: positive for [place] and positive for Poverty of Content Judgement: Poor Diagnostics Vital Signs (24Hr): Vital Signs - 24 hr 03/29/23 18:00 03/30/23 08:00 Temperature 97.3 F 96.6 F L Pulse Rate 73 79 Respiratory Rate 17 18 Blood Pressure 125/66 128/77 Pulse Oximetry 93 94 Oxygen Delivery Method Room Air Room Air BMI result Body Mass Index 26.1 Labs 03/15/23 07:56 Labs: Laboratory Results - last 48 hr 03/28/23 14:45 Urine Color Yellow Urine Appearance Clear Urine pH 5.5 Ur Specific [place] 1.025 Urine Protein Negative Urine Glucose (UA) Negative Urine Ketones Trace Urine Blood Negative Urine Nitrite Negative Ur Leukocyte Esterase Negative Urine RBC 0-2 Urine WBC 0-5 Ur Squamous Epith Cells 3-5 Urine Bacteria None Seen Hyaline Casts 6-10 Medications Medications Current Medications Acetaminophen (Acetaminophen 325 Mg Tablet) 650 mg PO Q6H PRN PRN Reason: Headache/Pain Mild Scale (1-3) Last Admin: 03/17/23 06:02 Dose: 650 mg Acetaminophen (Acetaminophen 325 Mg Tablet) 975 mg PO BEDTIME PRN PRN Reason: Moderate Pain (Scale Score 5-6) Al Hydroxide/Mg Hydroxide (Magnesium Hydrox/Alum Hydrox 30 Ml Oral.Susp) 30 ml PO Q6H PRN PRN Reason: Heartburn/Nausea Atorvastatin Calcium (Atorvastatin Calcium 40 Mg Tablet) 40 mg PO BEDTIME [facility] Last Admin: 03/29/23 20:45 Dose: 40 mg Benzocaine (Throat Lozenge, Medicated Lozenge) 1 lozenge MUCOUS MEM Q1H PRN PRN Reason: Sore Throat Bupropion HCl (Bupropion Hcl Xl 150 Mg Tab.Er.24h) 150 mg PO DAILY [facility] Last Admin: 03/30/23 09:00 Dose: 150 mg Docusate Sodium (Docusate Sodium 100 Mg Capsule) 100 mg PO BID PRN PRN Reason: Constipation Last Admin: 03/29/23 09:31 Dose: 100 mg Donepezil HCl (Donepezil Hcl 10 Mg Tablet) 10 mg PO BEDTIME [facility] Last Admin: 03/29/23 20:45 Dose: 10 mg Hydroxyzine HCl (Hydroxyzine Hcl 25 Mg Tablet) 25 mg PO Q6H PRN PRN Reason: Anxiety Last Admin: 03/14/23 21:26 Dose: 25 mg Lisinopril (Lisinopril 5 Mg Tablet) 5 mg PO DAILY [facility]; Protocol Last Admin: 03/30/23 09:01 Dose: 5 mg Magnesium Hydroxide (Milk Of Magnesia 30 Ml Oral.Susp) 30 ml PO DAILY PRN PRN Reason: Constipation Memantine (Memantine Hcl 10 Mg Tablet) 10 mg PO BID [facility] Last Admin: 03/30/23 09:01 Dose: 10 mg Omeprazole (Omeprazole 20 Mg Capsule.Dr) 20 mg PO DAILY [facility] Last Admin: 03/30/23 09:00 Dose: 20 mg Sertraline HCl (Sertraline Hcl 100 Mg Tablet) 200 mg PO DAILY [facility] Last Admin: 03/30/23 09:00 Dose: 200 mg Sertraline HCl (Sertraline Hcl 50 Mg Tablet) 50 mg PO DAILY [facility] Last Admin: 03/30/23 09:01 Dose: 50 mg Trazodone HCl (Trazodone Hcl 50 Mg Tablet) 50 mg PO BEDTIME [facility] Last Admin: 03/29/23 20:45 Dose: 50 mg Allergies Allergies Allergy/AdvReac Type Severity Reaction Status Date / Time Latex, Natural Rubber AdvReac Rash Verified 03/14/23 16:44 Assessment & Plan Assessment & Plan (1) Major depressive disorder: Status: Acute Code(s): F32.9 - Major depressive disorder, single episode, unspecified (2) Dementia: Status: Acute Code(s): F03.90 - Unspecified dementia, unspecified severity, without behavioral disturbance, psychotic disturbance, mood disturbance, and anxiety Plan The patient is an elderly male with no prior psychiatric history, admitted for suicidal thoughts and depression since his was admitted into a psychiatric unit. On interview, on admission, he was very confused and a very poor historian. According to crisis, the patient had a prior history of depression and started reading Wellbutrin. 03/27 ordering UA 03/30: c/o sore throat, lozenges ordered. stable, no change in presentation otherwise. Plan 1. Gather collateral information the prep H and is a very poor historian and he is willing to start treatment. 2. Continue with Wellbutrin as prescribed. 3. Continue with medical workout. 4. Reassessment results. 5. Aricept 5 mg p.o. q.h.s. to target dementia, started on March 18. We are increasing up to 10 mg p.o. q.h.s. on March 20. 6. Start Namenda 5 mg p.o. daily on March 21. We are changing to b.i.d. on March 23. On April 03 we are increasing to 10 mg p.o. b.i.d. Reason for continued inpatient stay Substantial Risk for: inability to function and rapid decompensation Time Spent With Patient Time: Total time managing care of this patient today ____ minutes.
[2023-03-30 12:20] VITALS: RESP 18; TEMP 36.7; O2SAT 95
[2023-03-30] MEDS: Throat Lozenge, Medicated LOZENGE 1 LOZENGE MUCOUS MEM ×4 (12:21→20:59)
--- NOTE | 2023-03-30 13:22 | PC.NURSE ---
Patient complaining of a sore throat after taking medications saying one scratched his throat. Patient given Cepacol Lozenge as ordered. Lung sounds clear , T98.1 and O2 Sat after lunch.
[2023-03-30 18:00] VITALS: BP 125/74; PULSE 91; RESP 18; TEMP 37.1; O2SAT 95
[2023-03-30] MEDS: Atorvastatin Calcium 40 MG TABLET PO (20:48)
[2023-03-30] MEDS: Donepezil HCl 10 MG TABLET PO (20:48)
[2023-03-30] MEDS: traZODone HCL 50 MG TABLET PO (20:49)
[2023-03-31] MEDS: Acetaminophen 325 MG TABLET 650 MG PO (01:35)
[2023-03-31] MEDS: Throat Lozenge, Medicated LOZENGE 1 LOZENGE MUCOUS MEM (01:38)
[2023-03-31] MEDS: guaiFENesin 200 MG/10 ML 10 ML LIQUID PO (06:09)
[2023-03-31 08:10] VITALS: BP 121/86; PULSE 88; RESP 18; TEMP 36; O2SAT 95
[2023-03-31] MEDS: Sertraline HCL 50 MG TABLET PO (08:42)
[2023-03-31] MEDS: lisinopriL 5 MG TABLET PO (08:42)
[2023-03-31] MEDS: Omeprazole 20 MG CAPSULE.DR PO (08:42)
[2023-03-31] MEDS: Memantine HCl 10 MG TABLET PO ×2 (08:42→21:02)
[2023-03-31] MEDS: Sertraline HCL 100 MG TABLET 200 MG PO (08:42)
[2023-03-31] MEDS: buPROPion HCl XL 150 MG TAB.ER.24H PO (08:42)
--- NOTE | 2023-03-31 12:08 | P.PNPSI_ITS ---
Subjective Subjective Date of Service: 03/31/23 Reason For Visit: psychosis Interim History: feeling well today. sore throat improved. no questions or complaints. per staff, feeling better. VSS. more active today than yesterday. alert only to person. Mental Status Exam Mental Status Exam Patient Appearance: Appropriate Patient Orientation: Person Level of Consciousness: Awake and Appropriate Patient Behavior: Guarded and Passive Mood Description: Withdrawn Affect Description: Constricted Patient Cognition Impaired: Yes Ability to Follow Directions: Good Speech Pattern: Clear Hallucinations: None Delusions: Not Present Thought Process: Distracted and Slowed Thinking Thought Content: positive for [place] and positive for Poverty of Content Judgement: Poor Diagnostics Vital Signs (24Hr): Vital Signs - 24 hr 03/30/23 12:20 03/30/23 18:00 03/31/23 08:10 Temperature 98.1 F 98.8 F 96.8 F Pulse Rate 91 88 Respiratory Rate 18 18 18 Blood Pressure 125/74 121/86 Pulse Oximetry 95 95 95 Oxygen Delivery Method Room Air Room Air Room Air BMI result Body Mass Index 26.1 Labs 03/15/23 07:56 Medications Medications Current Medications Acetaminophen (Acetaminophen 325 Mg Tablet) 650 mg PO Q6H PRN PRN Reason: Headache/Pain Mild Scale (1-3) Last Admin: 03/31/23 01:35 Dose: 650 mg Acetaminophen (Acetaminophen 325 Mg Tablet) 975 mg PO BEDTIME PRN PRN Reason: Moderate Pain (Scale Score 5-6) Al Hydroxide/Mg Hydroxide (Magnesium Hydrox/Alum Hydrox 30 Ml Oral.Susp) 30 ml PO Q6H PRN PRN Reason: Heartburn/Nausea Atorvastatin Calcium (Atorvastatin Calcium 40 Mg Tablet) 40 mg PO BEDTIME [facility] Last Admin: 03/30/23 20:48 Dose: 40 mg Benzocaine (Throat Lozenge, Medicated Lozenge) 1 lozenge MUCOUS MEM Q1H PRN PRN Reason: Sore Throat Last Admin: 03/31/23 01:38 Dose: 1 lozenge Bupropion HCl (Bupropion Hcl Xl 150 Mg Tab.Er.24h) 150 mg PO DAILY [facility] Last Admin: 03/31/23 08:42 Dose: 150 mg Docusate Sodium (Docusate Sodium 100 Mg Capsule) 100 mg PO BID PRN PRN Reason: Constipation Last Admin: 03/29/23 09:31 Dose: 100 mg Donepezil HCl (Donepezil Hcl 10 Mg Tablet) 10 mg PO BEDTIME [facility] Last Admin: 03/30/23 20:48 Dose: 10 mg Guaifenesin (Guaifenesin 200 Mg/10 Ml 10 Ml Liquid) 10 ml PO Q4H PRN PRN Reason: Cough Last Admin: 03/31/23 06:09 Dose: 10 ml Hydroxyzine HCl (Hydroxyzine Hcl 25 Mg Tablet) 25 mg PO Q6H PRN PRN Reason: Anxiety Last Admin: 03/14/23 21:26 Dose: 25 mg Lisinopril (Lisinopril 5 Mg Tablet) 5 mg PO DAILY [facility]; Protocol Last Admin: 03/31/23 08:42 Dose: 5 mg Magnesium Hydroxide (Milk Of Magnesia 30 Ml Oral.Susp) 30 ml PO DAILY PRN PRN Reason: Constipation Memantine (Memantine Hcl 10 Mg Tablet) 10 mg PO BID [facility] Last Admin: 03/31/23 08:42 Dose: 10 mg Omeprazole (Omeprazole 20 Mg Capsule.Dr) 20 mg PO DAILY [facility] Last Admin: 03/31/23 08:42 Dose: 20 mg Sertraline HCl (Sertraline Hcl 100 Mg Tablet) 200 mg PO DAILY [facility] Last Admin: 03/31/23 08:42 Dose: 200 mg Sertraline HCl (Sertraline Hcl 50 Mg Tablet) 50 mg PO DAILY [facility] Last Admin: 03/31/23 08:42 Dose: 50 mg Trazodone HCl (Trazodone Hcl 50 Mg Tablet) 50 mg PO BEDTIME [facility] Last Admin: 03/30/23 20:49 Dose: 50 mg Allergies Allergies Allergy/AdvReac Type Severity Reaction Status Date / Time Latex, Natural Rubber AdvReac Rash Verified 03/14/23 16:44 Assessment & Plan Assessment & Plan (1) Major depressive disorder: Status: Acute Code(s): F32.9 - Major depressive disorder, single episode, unspecified (2) Dementia: Status: Acute Code(s): F03.90 - Unspecified dementia, unspecified severity, without behavioral disturbance, psychotic disturbance, mood disturbance, and anxiety Plan The patient is an elderly male with no prior psychiatric history, admitted for suicidal thoughts and depression since his was admitted into a psychiatric unit. On interview, on admission, he was very confused and a very poor historian. According to crisis, the patient had a prior history of depression and started reading Wellbutrin. 03/27 ordering UA 03/30: c/o sore throat, lozenges ordered. stable, no change in presentation otherwise. Plan 1. Gather collateral information the prep H and is a very poor historian and he is willing to start treatment. 2. Continue with Wellbutrin as prescribed. 3. Continue with medical workout. 4. Reassessment results. 5. Aricept 5 mg p.o. q.h.s. to target dementia, started on March 18. We are increasing up to 10 mg p.o. q.h.s. on March 20. 6. Start Namenda 5 mg p.o. daily on March 21. We are changing to b.i.d. on March 23. On April 03 we are increasing to 10 mg p.o. b.i.d. Reason for continued inpatient stay Substantial Risk for: inability to function Time Spent With Patient Time: Total time managing care of this patient today ____ minutes.
[2023-03-31 18:00] VITALS: BP 119/68; PULSE 70; RESP 18; TEMP 36.2; O2SAT 93
[2023-03-31] MEDS: Donepezil HCl 10 MG TABLET PO (21:02)
[2023-03-31] MEDS: Atorvastatin Calcium 40 MG TABLET PO (21:02)
[2023-03-31] MEDS: traZODone HCL 50 MG TABLET PO (21:02)
[2023-04-01 06:00] VITALS: BP 130/75; PULSE 82; RESP 18; TEMP 36.4; O2SAT 95
[2023-04-01] MEDS: lisinopriL 5 MG TABLET PO (08:22)
[2023-04-01] MEDS: Memantine HCl 10 MG TABLET PO ×2 (08:22→20:39)
[2023-04-01] MEDS: buPROPion HCl XL 150 MG TAB.ER.24H PO (08:22)
[2023-04-01] MEDS: Sertraline HCL 50 MG TABLET PO (08:22)
[2023-04-01] MEDS: Sertraline HCL 100 MG TABLET 200 MG PO (08:22)
[2023-04-01] MEDS: Omeprazole 20 MG CAPSULE.DR PO (08:22)
--- NOTE | 2023-04-01 13:10 | HO.PSYCHPN ---
Subjective Subjective Date of Service: 04/01/23 Reason For Visit: psychosis Subjective Notes: Conditional Voluntary Interim History: The nursing staff reported the patient had been social with peers, he denies suicidal or homicidal ideation he had good appetite. He slept well last night but he was still confused. On interview the patient denies new symptoms he agreed on the plan of being discharged with his tomorrow. No side effects with current medications. Mental Status Exam Mental Status Exam Patient Appearance: Well Grooomed and Appropriate Patient Orientation: Person, Place and Situation Level of Consciousness: Awake and Appropriate Patient Behavior: Cooperative and Passive Mood Description: Calm Affect Description: Constricted Patient Cognition Impaired: Yes Ability to Follow Directions: Good Speech Pattern: Clear Hallucinations: None Delusions: Not Present Thought Process: Linear Thought Content: positive for [place] and positive for Circumstantial Judgement: Fair Diagnostics Vital Signs (24Hr): Vital Signs - 24 hr 03/31/23 18:00 04/01/23 06:00 Temperature 97.2 F 97.6 F Pulse Rate 70 82 Respiratory Rate 18 18 Blood Pressure 119/68 130/75 Pulse Oximetry 93 95 Oxygen Delivery Method Room Air Room Air BMI result Body Mass Index 26.1 Labs 03/15/23 07:56 Medications Medications Current Medications Acetaminophen (Acetaminophen 325 Mg Tablet) 650 mg PO Q6H PRN PRN Reason: Headache/Pain Mild Scale (1-3) Last Admin: 03/31/23 01:35 Dose: 650 mg Acetaminophen (Acetaminophen 325 Mg Tablet) 975 mg PO BEDTIME PRN PRN Reason: Moderate Pain (Scale Score 5-6) Al Hydroxide/Mg Hydroxide (Magnesium Hydrox/Alum Hydrox 30 Ml Oral.Susp) 30 ml PO Q6H PRN PRN Reason: Heartburn/Nausea Atorvastatin Calcium (Atorvastatin Calcium 40 Mg Tablet) 40 mg PO BEDTIME [facility] Last Admin: 03/31/23 21:02 Dose: 40 mg Benzocaine (Throat Lozenge, Medicated Lozenge) 1 lozenge MUCOUS MEM Q1H PRN PRN Reason: Sore Throat Last Admin: 03/31/23 01:38 Dose: 1 lozenge Bupropion HCl (Bupropion Hcl Xl 150 Mg Tab.Er.24h) 150 mg PO DAILY [facility] Last Admin: 04/01/23 08:22 Dose: 150 mg Docusate Sodium (Docusate Sodium 100 Mg Capsule) 100 mg PO BID PRN PRN Reason: Constipation Last Admin: 03/29/23 09:31 Dose: 100 mg Donepezil HCl (Donepezil Hcl 10 Mg Tablet) 10 mg PO BEDTIME [facility] Last Admin: 03/31/23 21:02 Dose: 10 mg Guaifenesin (Guaifenesin 200 Mg/10 Ml 10 Ml Liquid) 10 ml PO Q4H PRN PRN Reason: Cough Last Admin: 03/31/23 06:09 Dose: 10 ml Hydroxyzine HCl (Hydroxyzine Hcl 25 Mg Tablet) 25 mg PO Q6H PRN PRN Reason: Anxiety Last Admin: 03/14/23 21:26 Dose: 25 mg Lisinopril (Lisinopril 5 Mg Tablet) 5 mg PO DAILY [facility]; Protocol Last Admin: 04/01/23 08:22 Dose: 5 mg Magnesium Hydroxide (Milk Of Magnesia 30 Ml Oral.Susp) 30 ml PO DAILY PRN PRN Reason: Constipation Memantine (Memantine Hcl 10 Mg Tablet) 10 mg PO BID [facility] Last Admin: 04/01/23 08:22 Dose: 10 mg Omeprazole (Omeprazole 20 Mg Capsule.Dr) 20 mg PO DAILY [facility] Last Admin: 04/01/23 08:22 Dose: 20 mg Sertraline HCl (Sertraline Hcl 100 Mg Tablet) 200 mg PO DAILY [facility] Last Admin: 04/01/23 08:22 Dose: 200 mg Sertraline HCl (Sertraline Hcl 50 Mg Tablet) 50 mg PO DAILY [facility] Last Admin: 04/01/23 08:22 Dose: 50 mg Trazodone HCl (Trazodone Hcl 50 Mg Tablet) 50 mg PO BEDTIME [facility] Last Admin: 03/31/23 21:02 Dose: 50 mg Allergies Allergies Allergy/AdvReac Type Severity Reaction Status Date / Time Latex, Natural Rubber AdvReac Rash Verified 03/14/23 16:44 Assessment & Plan Assessment & Plan (1) Major depressive disorder: Status: Acute Code(s): F32.9 - Major depressive disorder, single episode, unspecified (2) Dementia: Status: Acute Code(s): F03.90 - Unspecified dementia, unspecified severity, without behavioral disturbance, psychotic disturbance, mood disturbance, and anxiety Plan The patient is an elderly male with no prior psychiatric history, admitted for suicidal thoughts and depression since his was admitted into a psychiatric unit. On interview, on admission, he was very confused and a very poor historian. According to crisis, the patient had a prior history of depression and started reading Wellbutrin. 03/27 ordering UA 03/30: c/o sore throat, lozenges ordered. stable, no change in presentation otherwise. Plan 1. Gather collateral information the prep H and is a very poor historian and he is willing to start treatment. 2. Continue with Wellbutrin as prescribed. 3. Continue with medical workout. 4. Reassessment results. 5. Aricept 5 mg p.o. q.h.s. to target dementia, started on March 18. We are increasing up to 10 mg p.o. q.h.s. on March 20. 6. Start Namenda 5 mg p.o. daily on March 21. We are changing to b.i.d. on March 23. On April 03 we are increasing to 10 mg p.o. b.i.d. Reason for continued inpatient stay Substantial Risk for: inability to function, rapid decompensation and med/psych decompensation Time Spent With Patient Time: Total time managing care of this patient today __20__ minutes.
[2023-04-01 18:00] VITALS: BP 130/63; PULSE 69; RESP 16; TEMP 36.1; O2SAT 96
[2023-04-01] MEDS: traZODone HCL 50 MG TABLET PO (20:39)
[2023-04-01] MEDS: Atorvastatin Calcium 40 MG TABLET PO (20:39)
[2023-04-01] MEDS: Donepezil HCl 10 MG TABLET PO (20:39)
[2023-04-01] MEDS: guaiFENesin 200 MG/10 ML 10 ML LIQUID PO (20:45)
[2023-04-02 08:30] VITALS: BP 125/72; RESP 20; TEMP 35.8; O2SAT 97
[2023-04-02] MEDS: Sertraline HCL 100 MG TABLET 200 MG PO (08:39)
[2023-04-02] MEDS: Memantine HCl 10 MG TABLET PO (08:40)
[2023-04-02] MEDS: Omeprazole 20 MG CAPSULE.DR PO (08:40)
[2023-04-02] MEDS: buPROPion HCl XL 150 MG TAB.ER.24H PO (08:40)
[2023-04-02] MEDS: Sertraline HCL 50 MG TABLET PO (08:40)
[2023-04-02] MEDS: lisinopriL 5 MG TABLET PO (08:40)
--- NOTE | 2023-04-02 12:03 | PM.PSYDC ---
DS: Providers Provider Date of Service: 04/02/23 Date of admission: 03/14/23 16:00 Date of discharge: 04/02/23 Primary care physician: Unknown Physician Consults: 03/14/23 17:05 Consult to Hospitalist Routine Comment: Consulting Provider: Hospitalist Reason For Exam: Direct admission Attending physician on discharge: Richard Reilly DS: Diagnosis Discharge Diagnosis (1) Major depressive disorder: Status: Acute (2) Dementia: Status: Acute DS: Medications Discharge Medications Home Medications: Home Medications Medication Instructions Recorded Confirmed acetaminophen 325 mg capsule 1,000 mg PO BEDTIME PRN Moderate 03/14/23 03/14/23 (Tylenol) Pain (Scale Score 5-6) atorvastatin 40 mg tablet 40 mg PO 1XD 03/14/23 03/14/23 bupropion HCl 100 mg tablet,12 hr 100 mg PO BID 03/14/23 03/14/23 sustained-release lansoprazole 15 mg capsule,delayed 15 mg PO DAILY 03/14/23 03/14/23 release lisinopril 5 mg tablet 5 mg PO DAILY 03/14/23 03/14/23 sertraline 50 mg tablet 250 mg PO DAILY 03/14/23 03/14/23 vibegron 75 mg tablet 75 mg PO DAILY 03/14/23 03/14/23 Mental Status Exam Mental Status Exam Patient Appearance: Appropriate Patient Orientation: Person Level of Consciousness: Awake and Appropriate Patient Behavior: Guarded and Passive Mood Description: Withdrawn and Constricted Affect Description: Calm Patient Cognition Impaired: Yes Ability to Follow Directions: Good Speech Pattern: Clear Memory Description: Intact Hallucinations: None Delusions: Not Present Thought Process: Distracted and Slowed Thinking Thought Content: positive for Caruthers and positive for Poverty of Content Judgement: Poor Data Data Completed and Pending Completed studies during hospitalization [Text1]: 03/28/23 14:45 Urine Color Yellow Urine Appearance Clear Urine pH 5.5 Ur Specific Bee 1.025 Urine Protein Negative Urine Glucose (UA) Negative Urine Ketones Trace Urine Blood Negative Urine Nitrite Negative Ur Leukocyte Esterase Negative Urine RBC 0-2 Urine WBC 0-5 Ur Squamous Epith Cells 3-5 Urine Bacteria None Seen Hyaline Casts 6-10 DS: Summary Hospital Course Hospital Course: The patient is an 82-year-old male, , with a past history of dementia was brought to this facility from another emergency room since he complained of exacerbation of depression with suicidal ideation. Apparently the patient and his suffers from dementia and they were trying to commit suicide by stopping her medications. She had been placed in another facility. The patient was assessed by crisis and transferring to this facility for psychiatric stabilization. Please see the HPI of the admission note for further details. On intake, the patient was severely confused, unable to remember how come he end up here in the hospital, pleasant and cooperative. The patient had knowledge of history of depression with depressed mood, anhedonia, lack of energy feelings of hopelessness. He was already on Zoloft to 150 mg p.o. daily. He was tested by our occupational therapist and it showed clear dementia with a low score on the [place] and in the Nnamdi test. We discussed risks, benefits, side-effects and alternatives and he agreed to start Aricept titrated up to 10 mg p.o. daily and Namenda 10 mg p.o. b.i.d. with for tolerability. The patient had been mostly isolative but easily redirectable, he attended a few groups and he was future oriented. We had family meetings and he was able to contract for safety and we decided to discharge him back home with his and ancillary services since the patient does not have any safety concerns at this moment. He remains very confused and demented but able to contract for safety. Time spent discussing smoking cessation with patient: 3 to 10 minutes Status at Discharge Cognitive/behavioral status at discharge: Impaired at baseline Functional status at discharge: independent ambulation Overall status at discharge: patient is back to baseline Time Spent with Patient Time attestation: Total time managing care of this patient today __30__ minutes. Time spent: Less than 30 minutes Discharge Plan Discharge Anticipated Discharge Date/Time: 04/02/23 01:00 Discharge Diagnosis: Major depressive disorder. Dementia Referrals: Dr. Breanna Alcala [Other] - 04/04/23 9:15 am (Appointment: In-Person. 04/04/2023 @ 9:15am ) Dr. Emmanuel Mayfield - Psychiatrist [Other] - 04/04/23 1:00 pm (Appointment is by Telephone: 04/04/2023 @ 1:00pm ) Stephen - Alignment Specialist -[phone] [Other] - 1 Week (Alignment Specialist will call patient tomorrow to schedule services. ) Discharge Medications: New trazodone 50 mg Tablet 50 mg PO BEDTIME 30 Days Qty: 30 0RF donepezil 10 mg Tablet 10 mg PO BEDTIME 30 Days Qty: 30 0RF sertraline 100 mg Tablet 200 mg PO DAILY 30 Days Qty: 60 0RF guaifenesin 100 mg/5 mL Liquid 100 mg PO Q4H PRN (Reason: Cough) 30 Days Qty: 100 0RF docusate sodium 100 mg Capsule 100 mg PO BID PRN (Reason: Constipation) 30 Days Qty: 60 0RF sertraline 50 mg Tablet 50 mg PO DAILY 30 Days Qty: 30 0RF bupropion HCl 150 mg Tablet Extended Release 24 Hr 150 mg PO DAILY 30 Days Qty: 30 0RF memantine [Namenda] 10 mg Tablet 10 mg PO BID 30 Days Qty: 60 0RF Continued atorvastatin 40 mg Tablet 40 mg PO 1XD 30 Days Qty: 30 0RF lansoprazole 15 mg Capsule,Delayed Release(Dr/Ec) 15 mg PO DAILY 30 Days Qty: 30 0RF lisinopril 5 mg Tablet 5 mg PO DAILY 30 Days Qty: 30 0RF acetaminophen [Tylenol] 325 mg Capsule 1,000 mg PO BEDTIME PRN (Reason: Moderate Pain (Scale Score 5-6)) 30 Days Qty: 90 0RF vibegron 75 mg Tablet 75 mg PO DAILY 30 Days Qty: 30 0RF Discontinued bupropion HCl 100 mg Tablet Sustained-Release 12 Hr 100 mg PO BID sertraline 50 mg Tablet 250 mg PO DAILY Discharge Orders: Discharge Order (Routine); Ordered 04/02/23 Ordered By: Richard Reilly Diet: Advance to usual diet Activity on Discharge: As tolerated Stand Alone Forms: Patient Portal Discharge page Care Plan Goals: Care plan goals achieved in this admission Health Concerns: Continue treatment with primary care physician as an outpatient Plan of Treatment: Continue medication management as an outpatient by psychiatric provider. Assessment: Elderly male with a past history of major depressive disorder and dementia admitted for exacerbation of symptoms with suicidality that resolved with antidepressants. He has been started on medications for dementia with Aricept and Namenda with good tolerability at this moment safe to be in the community.
--- NOTE | 2023-04-02 15:16 | PC.NURSE ---
Pt. alert and oriented in all spheres. Denies anxiety/depression/SI/HI/perceptual disturbances. Reports readiness for discharge. Discharge instructions and medications reviewed with pt., who verbalized understanding. Pt. left unit and wheeled to waiting car accompanied by this RN, brother, and sister in law at 14:48.
== END 2023-04-02 14:48 | disposition home or self-care (01) | DRG 881 ==
PROVIDERS: Psychiatry & Neurology Psychiatry; Admitting Provider Psychiatry & Neurology Psychiatry; Visit Provider Psychiatry & Neurology Psychiatry
DX: F32.9 Major depressive disorder, single episode, unspecified (principal); I10 Essential (primary) hypertension; F03.90 Unspecified dementia, unspecified severity, without behavioral disturbance, psychotic disturbance, mood disturbance, and anxiety; K21.9 Gastro-esophageal reflux disease without esophagitis; N32.81 Overactive bladder; E78.5 Hyperlipidemia, unspecified; Z23 Encounter for immunization; Z87.891 Personal history of nicotine dependence; Z91.040 Latex allergy status; Z79.899 Other long term (current) drug therapy
CPT/HCPCS: 36415; 80053; 80061; 81001; 90686

== ENCOUNTER → 2023-03-14 16:00 | Outpatient (BNV) | payer OTHER, SELFPAY | PROVIDERS: Visit Provider Psychiatry & Neurology Psychiatry | DX: F33.2 Major depressive disorder, recurrent severe without psychotic features (principal); F03.90 Unspecified dementia, unspecified severity, without behavioral disturbance, psychotic disturbance, mood disturbance, and anxiety | CPT/HCPCS: 90792; 99231; 99232; 99238 ==

== ENCOUNTER → 2023-03-14 16:00 | Outpatient (BNV) | payer OTHER, SELFPAY | PROVIDERS: Visit Provider Student in an Organized Health Care Education/Training Program | DX: Z02.2 Encounter for examination for admission to residential institution (principal) | CPT/HCPCS: 99429 ==